=== PATIENT | female | born 1950 | race Caucasian/White ===

== ENCOUNTER → 2017-10-03 17:03 | Outpatient (CLI) | payer MEDICARE, SELFPAY ==
[2017-10-03 18:35] LABS: Thyroid Stimulating Hormone 1.81 uIU/mL (0.47-4.68)
== END ==
PROVIDERS: Visit Provider Internal Medicine
DX: E03.9 Hypothyroidism, unspecified (principal)
CPT/HCPCS: 36415; 84443

== ENCOUNTER → 2017-10-13 15:01 | Outpatient (CLI) | payer MEDICARE, SELFPAY ==
[2017-10-13 17:26] LABS: Add Manual Diff / Slide Review NO; Basophils Percent Auto 0.9 % (0-2); Eosinophils Percent Auto 0.8 % (2-4); Hematocrit 35.2 % (36-46); Hemoglobin 11.9 g/dL (12.0-16.0); Lymphocytes Percent Auto 31.2 % (25-40); Mean Corpuscular HGB Conc 33.8 % (30-36); Mean Corpuscular Hemoglobin 30.6 PG (26-34); Mean Corpuscular Volume 90.7 fL (80-100); Monocytes Percent Auto 12.4 % (3-14); Neutrophils Absolute Auto 2700 /uL (3000-5900); Neutrophils Percent Auto 54.7 % (50-75); Platelet Count 252 X10^3/uL (150-400); Red Blood Cell Count 3.88 X10^6/uL (4.0-5.2); Red Cell Distribution Width 15.2 % (11.6-14.8)
== END ==
PROVIDERS: Family Provider Family Medicine; PCP Family Medicine; Visit Provider Family Medicine
DX: D64.9 Anemia, unspecified (principal)
CPT/HCPCS: 36415; 85025

== ENCOUNTER → 2017-11-24 07:54 | Outpatient (CLI) | payer MEDICARE, SELFPAY ==
--- NOTE | 2017-11-24 07:55 | DI.MG.S_ITS ---
BILATERAL DIGITAL SCREENING MAMMOGRAM 3D/2D WITH CAD: 11/24/2017 CLINICAL: Routine screening. Comparison is made to exams dated: 05/19/2015 mammogram, 02/27/2013 mammogram, and 10/11/2010 mammogram - [facility]. There are scattered fibroglandular elements in both breasts. Current study was also evaluated with a Computer Aided Detection (CAD) system. No significant masses, calcifications, or other findings are seen in either breast. There has been no significant interval change. IMPRESSION: NEGATIVE There is no mammographic evidence of malignancy. A 1 year screening mammogram is recommended. This exam was interpreted at Station ID: [id number]. NOTE: For mammograms, a report in lay terms will be sent to the patient. Approximately 15% of breast malignancies will not be visualized mammographically. In the management of a palpable breast mass, a negative mammogram must not discourage biopsy of a clinically suspicious lesion. Electronically Signed By: Altaf bonds/holger:11/24/2017 09:48:49 letter sent: Normal Exam ACR BI-RADS Category 1: Negative [id number]
== END ==
PROVIDERS: Family Provider Family Medicine; PCP Family Medicine; Visit Provider Family Medicine
DX: Z12.31 Encounter for screening mammogram for malignant neoplasm of breast (principal)
CPT/HCPCS: 77063; 77067

== ENCOUNTER → 2017-12-01 09:06 | Outpatient (CLI) | payer MEDICARE, SELFPAY ==
[2017-12-01 09:23] LABS: Add Manual Diff / Slide Review NO; Eosinophils Percent Auto 0.9 % (2-4); Hematocrit 40.5 % (36-46); Hemoglobin 13.5 g/dL (12.0-16.0); Lymphocytes Percent Auto 30.4 % (25-40); Mean Corpuscular HGB Conc 33.3 % (30-36); Mean Corpuscular Hemoglobin 30.6 PG (26-34); Mean Corpuscular Volume 91.9 fL (80-100); Monocytes Percent Auto 13.4 % (3-14); Neutrophils Absolute Auto 2700 /uL (3000-5900); Neutrophils Percent Auto 54.3 % (50-75); Platelet Count 246 X10^3/uL (150-400); Red Cell Distribution Width 14.1 % (11.6-14.8)
[2017-12-01 10:27] LABS: HEMOLYSIS < 15 (0-50); Iron 63 ug/dL (37-170)
[2017-12-01 10:38] LABS: Percent Iron Saturation 14 % (15-50); Total Iron Binding Capacity 452 ug/dL (265-497); Transferrin 393 mg/dL (206-381)
[2017-12-01 11:03] LABS: Ferritin 10.7 ng/mL (11.1-264)
== END ==
PROVIDERS: Family Provider Family Medicine; PCP Family Medicine; Visit Provider Family Medicine
DX: D64.9 Anemia, unspecified (principal)
CPT/HCPCS: 36415; 82728; 83540; 83550; 85025

== ENCOUNTER 2018-11-18 10:28 | Emergency (ER) | payer OTHER, SELFPAY ==
[2018-11-18 10:29] VITALS: BP 125/80; PULSE 72; RESP 18; TEMP 36.4; O2SAT 99; BMI 21.2
[2018-11-18 10:30] VITALS: BP 145/80; PULSE 67; RESP 14; O2SAT 100
--- NOTE | 2018-11-18 10:32 | DI.RAD.S_ITS ---
PROCEDURE: XR CHEST 2V INDICATIONS: shortness of breath TECHNIQUE: 2 views of the chest were acquired. COMPARISON: [facility], , CHEST 1 VIEW, 10/19/2014, 7:27. FINDINGS: Surgical changes and devices: None. Lungs and pleura: Lungs are clear. No pleural effusions or pneumothorax. Mediastinum: Mediastinal contours are normal. Heart size is normal. Bones and chest wall: No suspicious bony abnormalities. Soft tissues appear unremarkable. IMPRESSION: Stable chest. No acute cardiopulmonary process is suspected. Dictated by: Fuad Dalton M.D. on 11/18/2018 at 10:15 Approved by: Fuad Dalton M.D. on 11/18/2018 at 10:16
--- NOTE | 2018-11-18 10:40 | ED.URI ---
HPI - URI/Sore Throat General Chief Complaint: Upper Respiratory Symptoms Stated Complaint: shortness of breath Time Seen by Provider: 11/18/18 10:39 Source: patient and old records reviewed Limitations: no limitations History of Present Illness HPI Narrative: Patient is a 68-year-old female presenting with increasing shortness of breath and cough. She was seen by her PCP on November 01 she was placed on prednisone and doxycycline. She says she did not get better after that she was seen again by her PCP on November 15 on a 2nd course of prednisone and antibiotics changed to Augmentin. She states this morning she felt her breathing was extremely labored. Her cough she says is a little bit better. She has been taking her albuterol inhaler 4 times a day feels like it helps some of the time. No fevers or chills. He has no chest pain. MD Complaint: cough Onset (ago): week(s) Duration: constant Severity: mild Relieving factors: nothing Related Data Home Medications Medication Instructions Recorded Confirmed cholecalciferol (vitamin D3) 1,000 iu PO QDAY #0 04/29/11 11/15/18 [Vitamin D3] Previous Rx's Medication Instructions Recorded albuterol sulfate 3 ml INH Q4HP PRN #30 vial 06/13/17 albuterol sulfate [Proventil HFA] 1 - 2 puff INH Q4HP PRN #6.7 gm 06/13/17 omeprazole 40 mg PO HS #30 cap 07/14/17 levothyroxine 75 mcg tablet 75 mcg PO DAILY #90 tab 09/10/18 mometasone-formoterol HFA 100 2 puff INHALATION BID #13 gram 09/14/18 mcg-5 mcg/actuation aerosol inhaler amoxicillin 875 mg-potassium 1 tab PO Q12H #28 tab 11/15/18 clavulanate 125 mg tablet prednisone 20 mg tablet See Rx Instructions .ROUTE 11/15/18 .COMPLEX #11 tab albuterol sulfate 1 puff INHALATION Q4-6H PRN #8 gram 11/18/18 Allergies Allergy/AdvReac Type Severity Reaction Status Date / Time erythromycin base Allergy Mild RASH Verified 11/15/18 11:29 shrimp Allergy Mild woke up w/ Verified 11/18/18 10:41 swollen eyes Review of Systems Review of Systems ROS Unobtainable: All systems reviewed & are unremarkable except as noted in HPI and below Constitutional Denies chills, Denies fever(s), Denies lethargy and Denies weakness ENT Ears, Nose, Mouth, and Throat: Denies change in voice, Denies neck pain and Denies sore throat Cardiovascular Denies rapid heart rate, Denies pedal edema, Denies edema, Reports dyspnea and Reports dyspnea on exertion Respiratory Reports as per HPI, Reports cough, Reports dyspnea, Reports dyspnea on exertion and Denies wheezing Gastrointestinal Gastrointestinal: Denies abdominal pain, Denies change in bowel habits, Denies diarrhea, Denies nausea and Denies vomiting Genitourinary Denies hematuria, Denies flank pain, Denies urinary incontinence and Denies urinary urgency Musculoskeletal Denies neck pain Integumentary/Breasts Denies pruritus, Denies erythema, Denies rash and Denies wounds Neurologic Denies weakness Allergic/Immunologic Denies wheezing [facility] Medical History Asthma (Chronic 2005) Eczema (Chronic 1952) Benign tumor of parotid gland (Resolved 1982) Chicken pox (Resolved ~1954) Measles (Resolved ~1954) Mumps (Resolved ~1954) Surgical History Anesthesia (Resolved) History of surgery (Resolved 1982) Status post breast biopsy (Resolved ~1992) Status post breast biopsy (Resolved ~1995) Family History Brother Age: 66 Diabetes mellitus Brother Age: 64 Diabetes mellitus Grandfather Mental health problem Grandmother Heart disease Mother Age: 86 Malignant neoplasm of lung, unspecified laterality, unspecified part of lung Brother Heart attack Liver disease Father Parkinson's disease Grandfather Pancreatic cancer Grandmother No problems noted. Social History marital status: number of children: 2 household members: none lives independently: Yes caregiver/support person: No housing: house education level: college occupational status: employed Smoking Status: Never smoker second hand exposure: No alcohol intake: current substance use type: does not use Family History Brother Age: 66 Diabetes mellitus Brother Age: 64 Diabetes mellitus Grandfather Mental health problem Grandmother Heart disease Mother Age: 86 Malignant neoplasm of lung, unspecified laterality, unspecified part of lung Brother Heart attack Liver disease Father Parkinson's disease Grandfather Pancreatic cancer Grandmother No problems noted. Social History marital status: number of children: 2 household members: none lives independently: Yes caregiver/support person: No housing: house education level: college occupational status: employed Smoking Status: Never smoker second hand exposure: No alcohol intake: current substance use type: does not use Exam Initial Vital Signs Initial Vital Signs: Vital Signs Temperature 97.6 F 11/18/18 10:29 Pulse Rate 72 11/18/18 10:29 Respiratory Rate 18 11/18/18 10:29 Blood Pressure 125/80 11/18/18 10:29 Pulse Oximetry 99 11/18/18 10:29 GENERAL: Well-appearing, well-nourished and in no acute distress. HEENT: Head atraumatic,EOMI, pupils reactive, face symmetric, moist mucous membranes CARDIOVASCULAR: Regular rate and rhythm without murmurs, rubs or gallops. RESPIRATORY: Breath sounds equal bilaterally, no wheezes rales or rhonchi. Speaks in full sentences without any difficulty. ABDOMEN: Soft, nontender. Normoactive bowel sounds all 4 quadrants. No guarding or rebound. EXTREMITIES: Normal range of motion, no clubbing or edema. Neurovascularly intact NEUROLOGICAL: Alert and oriented x4.Normal gait and speech. Cranial nerves II through XII grossly intact. SKIN: Warm, dry, no laceration, no petechiae, no rashes or lesions. Course Orders Ordered: ED Orders 11/18/18 10:32 XR chest 2V Stat EKG-12 Lead Stat Measure peak expiratory flow ONCE RT Consult Eval and Treat Now 11/18/18 10:36 B Type Natriuretic Peptide Stat Complete Blood Count AUTO DIFF Stat Comprehensive Metabolic Panel Stat Lactate (Lactic Acid) Stat Troponin & CK Cardiac Panel Stat 11/18/18 10:39 CT angio chest PE protocol Stat 11/18/18 11:15 Respiratory Panel (Film Array) Stat Discontinued Medications Albuterol/Ipratropium (Duoneb) 3 ml INH NOW ONE Stop: 11/18/18 10:40 Last Admin: 11/18/18 10:45 Dose: 3 ml Vital Signs - 8 hr 11/18/18 10:29 11/18/18 10:30 11/18/18 10:45 Temperature 97.6 F Pulse Rate 72 67 68 Respiratory Rate 18 14 12 Blood Pressure 125/80 Blood Pressure [Left Arm] 145/80 H Pulse Oximetry 99 100 100 11/18/18 11:30 11/18/18 12:30 Temperature Pulse Rate 62 64 Respiratory Rate 16 22 Blood Pressure Blood Pressure [Left Arm] 119/96 H 120/70 Pulse Oximetry 100 98 MDM - URI/Sore Throat Lab Data Attestation: I reviewed the patient's lab results. Result diagrams: 11/18/18 10:36 11/18/18 10:36 Lab Results 11/18/18 11/18/18 11/18/18 Range/Units 10:36 10:36 10:36 WBC 8.0 (4.5-11.0) X10^3/uL RBC 4.42 (4.0-5.2) X10^6/uL Hgb 13.7 (12.0-16.0) g/dL Hct 40.7 (36-46) % MCV 92.1 (80-100) fL MCH 31.0 (26-34) PG MCHC 33.7 (30-36) % RDW 13.9 (11.6-14.8) % Plt Count 267 (150-400) X10^3/uL Neut % (Auto) 84.9 H (50-75) % Lymph % (Auto) 11.3 L (25-40) % Wetzel % (Auto) 3.2 (3-14) % Eos % (Auto) 0.1 L (2-4) % Baso % (Auto) 0.5 (0-2) % Neut # (Auto) 6800 (6480-3076) /uL Lymph # (Auto) 900 L (4009-3305) /uL Wetzel # (Auto) 300 (0-900) /uL Eos # (Auto) 0 (0-450) /uL Baso # (Auto) 0 (0-100) /uL Sodium 140 (137-145) mmol/L Potassium 3.5 (3.4-5.1) mmol/L Chloride 103 (98-107) mmol/L Carbon Dioxide 26 (22-32) mmol/L BUN 13 (7-17) mg/dL Creatinine 0.80 (0.52-1.04) mg/dL Estimated GFR > 60.0 (>60) mL/min BUN/Creatinine Ratio 16.3 (6-22) Glucose 129 H (80-110) mg/dL Lactate 2.3 H (0.7-2.1) mmol/L Calcium 10.0 (8.4-10.2) mg/dL Total Bilirubin 0.9 (0.2-1.3) mg/dL AST 25 (14-36) IU/L ALT 25 (9-52) IU/L Alkaline Phosphatase 64 (38-126) U/L Total Creatine Kinase (30-135) U/L CK-MB (CK-2) (<2.37) ng/mL CK-MB (CK-2) Rel Index (1.5-5.0) % Troponin I (0.01-0.034) ng/mL B-Natriuretic Peptide (<100) Total Protein 7.3 (6.3-8.2) g/dL Albumin 4.6 (3.5-5.0) g/dL Globulin 2.7 (1.7-4.1) g/dL Albumin/Globulin Ratio 1.7 (1.0-2.8) Chlamy pneumoniae PCR (Not Detect) Adenovirus (PCR) (Not Detect) B.parapertussis DNA PCR (Not Detect) Coronavirus OC43 (PCR) (Not Detect) Coronavirus HKU1 (PCR) (Not Detect) Coronavirus 229E (PCR) (Not Detect) Coronavirus NL63 (PCR) (Not Detect) Human Metapneumovir PCR (Not Detect) Influenza Type A (PCR) (Not Detect) Influenza Type B (PCR) (Not Detect) M. pneumoniae (PCR) (Not Detect) Parainfluenza 1 (PCR) (Not Detect) Parainfluenza 2 (PCR) (Not Detect) Parainfluenza 3 (PCR) (Not Detect) Parainfluenza 4 (PCR) (Not Detect) RSV (PCR) (Not Detect) Entero/Rhino (PCR) (Not Detect) 11/18/18 11/18/18 11/18/18 Range/Units 10:36 10:36 11:15 WBC (4.5-11.0) X10^3/uL RBC (4.0-5.2) X10^6/uL Hgb (12.0-16.0) g/dL Hct (36-46) % MCV (80-100) fL MCH (26-34) PG MCHC (30-36) % RDW (11.6-14.8) % Plt Count (150-400) X10^3/uL Neut % (Auto) (50-75) % Lymph % (Auto) (25-40) % Wetzel % (Auto) (3-14) % Eos % (Auto) (2-4) % Baso % (Auto) (0-2) % Neut # (Auto) (7601-6055) /uL Lymph # (Auto) (5746-3228) /uL Wetzel # (Auto) (0-900) /uL Eos # (Auto) (0-450) /uL Baso # (Auto) (0-100) /uL Sodium (137-145) mmol/L Potassium (3.4-5.1) mmol/L Chloride (98-107) mmol/L Carbon Dioxide (22-32) mmol/L BUN (7-17) mg/dL Creatinine (0.52-1.04) mg/dL Estimated GFR (>60) mL/min BUN/Creatinine Ratio (6-22) Glucose (80-110) mg/dL Lactate (0.7-2.1) mmol/L Calcium (8.4-10.2) mg/dL Total Bilirubin (0.2-1.3) mg/dL AST (14-36) IU/L ALT (9-52) IU/L Alkaline Phosphatase (38-126) U/L Total Creatine Kinase 106 (30-135) U/L CK-MB (CK-2) 1.36 (<2.37) ng/mL CK-MB (CK-2) Rel Index 1.3 L (1.5-5.0) % Troponin I < 0.012 (0.01-0.034) ng/mL B-Natriuretic Peptide < 100 (<100) Total Protein (6.3-8.2) g/dL Albumin (3.5-5.0) g/dL Globulin (1.7-4.1) g/dL Albumin/Globulin Ratio (1.0-2.8) Chlamy pneumoniae PCR Not detected (Not Detect) Adenovirus (PCR) Not detected (Not Detect) B.parapertussis DNA PCR Not detected (Not Detect) Coronavirus OC43 (PCR) Not detected (Not Detect) Coronavirus HKU1 (PCR) Not detected (Not Detect) Coronavirus 229E (PCR) Not detected (Not Detect) Coronavirus NL63 (PCR) Not detected (Not Detect) Human Metapneumovir PCR Not detected (Not Detect) Influenza Type A (PCR) Not detected (Not Detect) Influenza Type B (PCR) Not detected (Not Detect) M. pneumoniae (PCR) Not detected (Not Detect) Parainfluenza 1 (PCR) Not detected (Not Detect) Parainfluenza 2 (PCR) Not detected (Not Detect) Parainfluenza 3 (PCR) Not detected (Not Detect) Parainfluenza 4 (PCR) Not detected (Not Detect) RSV (PCR) Not detected (Not Detect) Entero/Rhino (PCR) Not detected (Not Detect) Imaging Data Chest x-ray: Radiologist's impression: PROCEDURE: XR CHEST 2V INDICATIONS: shortness of breath TECHNIQUE: 2 views of the chest were acquired. COMPARISON: [facility], , CHEST 1 VIEW, 10/19/2014, 7:27. FINDINGS: Surgical changes and devices: None. Lungs and pleura: Lungs are clear. No pleural effusions or pneumothorax. Mediastinum: Mediastinal contours are normal. Heart size is normal. Bones and chest wall: No suspicious bony abnormalities. Soft tissues appear unremarkable. IMPRESSION: Stable chest. No acute cardiopulmonary process is suspected. Dictated by: Fuad Dalton M.D. on 11/18/2018 at 10:15 CT scan - chest: Radiologist's impression: PROCEDURE: CT ANGIO CHEST PE PROTOCOL INDICATIONS: hypoxia TECHNIQUE: After the administration of intravenous contrast, 2 mm thick sections acquired from the pulmonary apices to the posterior costophrenic angles. 3-dimensional maximum intensity projection (MIP) coronal and sagittal reformats were then acquired through the thorax. For radiation dose reduction, the following was used: automated exposure control, adjustment of mA and/or kV according to patient size. COMPARISON: [facility], CT, ABDOMEN/PELVIS WITH CONTRAST, 05/04/2012, 11:26. FINDINGS: Image quality: Diagnostic. Pulmonary arteries: Pulmonary arteries are normal in size, and demonstrate no intraluminal filling defects to suggest central pulmonary embolism. Lungs and pleura: Lungs are clear. No pleural effusions or pneumothorax. Central and peripheral airways are patent. There is a small area of groundglass attenuation within the right upper lobe (image 61, series 4). This Mediastinum: Heart size is normal, without pericardial effusion. No mediastinal or hilar adenopathy. Thoracic aorta is normal in caliber and enhancement. Esophagus is normal in caliber, without hiatal hernia. Bones and chest wall: No suspicious bony lesions. Ribs and thoracic spine appear intact throughout. Age-appropriate degenerative changes of the spine are present. Thyroid gland is not enlarged or adequately evaluated. No axillary or supraclavicular adenopathy. Abdomen: The included portions of the upper abdomen demonstrate heterogeneous areas of low attenuation involving the spleen. Otherwise, no focal abnormality is seen within the upper abdomen. IMPRESSION: 1. No evidence of pulmonary embolism. 2. No acute cardiopulmonary process is identified. 3. Small nodular area of groundglass attenuation within the right upper lobe is of doubtful significance. However, three-month followup CT of the chest is recommended to evaluate for interval change. 4. Heterogeneous enhancement of the spleen is likely related to early arterial phase imaging. Splenic lesions are felt to be less likely, but cannot be completely excluded. Dictated by: Fuad Dalton M.D. on 11/18/2018 at 11:04 ECG Data Attestation: I personally reviewed and interpreted this ECG as follows: Prior ECG tracings: available for review Interpretation: Normal sinus rhythm rate 66 p.r. interval [address] elevations or depressions artifact noted MDM Narrative Medical decision making narrative: Patient has signs and symptoms consistent with upper respiratory like infection. However with her increased labored breathing CT angio was obtained and is negative for PE and pneumonia. Respiratory panel also obtained and also negative. At this time patient overall is not septic. She can continue and finish her current antibiotic and prednisone regimen. Discharge Plan Departure Patient Disposition: Home Clinical Impression: Upper respiratory infection Qualifiers: URI type: unspecified viral URI Qualified Code(s): J06.9 - Acute upper respiratory infection, unspecified Discharge Date/Time: 11/18/18 13:01 Interventions: ED Discharge Assessment Last Done: 11/18/18 12:59 Instructions: DI for Acute Bronchitis Activity Restrictions/Additional Instructions: *You have been diagnosed with viral bronchitis *What to do: At this time no pneumonia seen on your x-ray. CT scan is negative for any blood clot. Respiratory panel for some viruses is also negative. It is likely that you have a different type of virus that we did not test for. *Continue to take medications as directed Finish her antibiotics and prednisone as previously prescribed Continue albuterol 1-2 puffs every 4 hours if needed for shortness of breath *Follow up with your primary care provider in 2-3 days *Return to ER if you should have no relief with albuterol, increasing shortness of breath or chest pain, or any new, worsening or concerning symptoms Prescriptions: New albuterol sulfate 90 mcg/actuation HFA aerosol inhaler 1 puff INHALATION Q4-6H PRN (Reason: shortness of breath or wheezing) Qty: 8 RF: 0 No Action amoxicillin-pot clavulanate 875-125 mg tablet 1 tab PO Q12H Qty: 28 RF: 0 prednisone 20 mg tablet See Rx Instructions .ROUTE .COMPLEX Qty: 11 RF: 0 cholecalciferol (vitamin D3) [Vitamin D3] 1,000 UNIT tablet 1,000 iu PO QDAY Qty: 0 RF: 0 albuterol sulfate 2.5 MG/3 ML solution for nebulization 3 ml INH Q4HP PRNQty: 30 RF: 6 albuterol sulfate [Proventil HFA] 90 MCG/PUFF HFA aerosol inhaler 1 - 2 puff INH Q4HP PRNQty: 6.7 RF: 5 omeprazole 40 MG capsule,delayed release(DR/EC) 40 mg PO HS Qty: 30 RF: 3 levothyroxine 75 mcg tablet 75 mcg PO DAILY Qty: 90 RF: 1 Dulera 100-5 mcg/actuation HFA aerosol inhaler 2 puff INHALATION BID Qty: 13 RF: 3 Referrals: Johana Callaway MD [Primary Care Provider] -
[2018-11-18 10:45] VITALS: PULSE 68; RESP 12; O2SAT 100
[2018-11-18 10:45] LABS: Add Manual Diff / Slide Review NO; Basophils Absolute Auto 0 /uL (0-100); Basophils Percent Auto 0.5 % (0-2); Eosinophils Absolute Auto 0 /uL (0-450); Eosinophils Percent Auto 0.1 % (2-4); Hematocrit 40.7 % (36-46); Hemoglobin 13.7 g/dL (12.0-16.0); Lymphocytes Absolute Auto 900 /uL (1100-4500); Lymphocytes Percent Auto 11.3 % (25-40); Mean Corpuscular HGB Conc 33.7 % (30-36); Mean Corpuscular Volume 92.1 fL (80-100); Monocytes Absolute Auto 300 /uL (0-900); Monocytes Percent Auto 3.2 % (3-14); Neutrophils Absolute Auto 6800 /uL (1500-7000); Neutrophils Percent Auto 84.9 % (50-75); Platelet Count 267 X10^3/uL (150-400); Red Blood Cell Count 4.42 X10^6/uL (4.0-5.2); Red Cell Distribution Width 13.9 % (11.6-14.8)
[2018-11-18] MEDS: ALBUTEROL/IPRATROPIUM 3 ML AMPUL INH (10:45)
[2018-11-18 10:59] LABS: Alanine Aminotransferase 25 IU/L (9-52); Albumin 4.6 g/dL (3.5-5.0); Albumin Globulin Ratio 1.7 (1.0-2.8); Alkaline Phosphatase 64 U/L (38-126); Aspartate Aminotransferase 25 IU/L (14-36); BUN Creatinine Ratio 16.3 (6-22); Bilirubin Total 0.9 mg/dL (0.2-1.3); Blood Urea Nitrogen 13 mg/dL (7-17); Carbon Dioxide 26 mmol/L (22-32); Chloride 103 mmol/L (98-107); Creatine Kinase 106 U/L (30-135); Estimated Glomerular Filt Rate > 60.0 mL/min (>60); Globulin 2.7 g/dL (1.7-4.1); Glucose 129 mg/dL (80-110); HEMOLYSIS < 15 (0-50); Lactate (Lactic Acid) 2.3 mmol/L (0.7-2.1); Potassium 3.5 mmol/L (3.4-5.1); Sodium 140 mmol/L (137-145); Total Protein 7.3 g/dL (6.3-8.2)
[2018-11-18 11:09] LABS: B Type Natriuretic Peptide < 100 (<100)
[2018-11-18 11:10] LABS: Troponin I < 0.012 ng/mL (0.01-0.034)
[2018-11-18 11:14] LABS: CKMB % Relative Index 1.3 % (1.5-5.0); Creatine Kinase MB 1.36 ng/mL (<2.37)
[2018-11-18 11:30] VITALS: BP 119/96; PULSE 62; RESP 16; O2SAT 100
[2018-11-18 12:30] VITALS: BP 120/70; PULSE 64; RESP 22; O2SAT 98
[2018-11-18 12:34] LABS: Adenovirus Not Detected (Not Detect); Bordetella pertussis Not Detected (Not Detect); Chlamydophila pneumoniae Not Detected (Not Detect); Coronavirus 229E Not Detected (Not Detect); Coronavirus HKU1 Not Detected (Not Detect); Coronavirus NL 63 Not Detected (Not Detect); Coronavirus OC43 Not Detected (Not Detect); Human Metapneumovirus Not Detected (Not Detect); Human Rhinovirus/Enterovirus Not Detected (Not Detect); Influenza A Not Detected (Not Detect); Influenza B Not Detected (Not Detect); Mycoplasma pneumoniae Not Detected (Not Detect); Parainfluenza Virus 1 Not Detected (Not Detect); Parainfluenza Virus 2 Not Detected (Not Detect); Parainfluenza Virus 3 Not Detected (Not Detect); Parainfluenza Virus 4 Not Detected (Not Detect); Respiratory Syncytial Virus Not Detected (Not Detect)
[2018-11-18 12:41] LABS: Reflexed Lactate in 2 Hours Y
== END 2018-11-18 13:01 | disposition home or self-care (01) ==
PROVIDERS: Emergency Provider Emergency Medicine; PCP Family Medicine
DX: J06.9 Acute upper respiratory infection, unspecified (principal); R06.02 Shortness of breath; R09.02 Hypoxemia
CPT/HCPCS: 36415; 36591; 71046; 71275; 80053; 82550; 82553; 83605; 83880; 84484; 85025; 87633; 93005; 94150; 94640; 99283; 99285; Q9967

== ENCOUNTER → 2019-02-07 08:54 | Outpatient (CLI) | payer OTHER, SELFPAY ==
--- NOTE | 2019-02-07 | DI.MG.S_ITS ---
BILATERAL DIGITAL SCREENING MAMMOGRAM 3D/2D WITH CAD: 02/07/2019 CLINICAL: Routine screening. Comparison is made to exams dated: 11/24/2017 mammogram, 05/19/2015 mammogram, and 02/27/2013 mammogram - [facility]. There are scattered fibroglandular elements in both breasts. Current study was also evaluated with a Computer Aided Detection (CAD) system. No significant masses, calcifications, or other findings are seen in either breast. There has been no significant interval change. IMPRESSION: NEGATIVE There is no mammographic evidence of malignancy. A 1 year screening mammogram is recommended. This exam was interpreted at Station ID: [id number]. NOTE: For mammograms, a report in lay terms will be sent to the patient. Approximately 15% of breast malignancies will not be visualized mammographically. In the management of a palpable breast mass, a negative mammogram must not discourage biopsy of a clinically suspicious lesion. Electronically Signed By: Jose Cruz jefferson/holger:02/07/2019 12:05:22 letter sent: Normal Exam ACR BI-RADS Category 1: Negative 3341F
== END ==
PROVIDERS: PCP Family Medicine; Visit Provider Family Medicine
DX: Z12.31 Encounter for screening mammogram for malignant neoplasm of breast (principal)
CPT/HCPCS: 77063; 77067

== ENCOUNTER → 2019-02-25 13:36 | Outpatient (CLI) | payer OTHER, SELFPAY | PROVIDERS: PCP Family Medicine; Visit Provider Family Medicine | DX: E03.9 Hypothyroidism, unspecified (principal) | CPT/HCPCS: 36415; 84443 ==

== ENCOUNTER → 2019-03-01 07:35 | Outpatient (CLI) | payer OTHER, SELFPAY ==
--- NOTE | 2019-03-01 07:52 | DI.CT.S_ITS ---
PROCEDURE: CT CHEST WO CON INDICATIONS: Abnormal findings on diagnostic imaging TECHNIQUE: Noncontrast 2.0-2.5 mm thick sections acquired from the pulmonary apices to the posterior costophrenic angles. 7 mm thick axial MIP, and 5 mm coronal and sagittal reformats were then acquired. A low radiation dose technique was utilized. COMPARISON: [facility], CT, CT ANGIO CHEST PE PROTOCOL, 11/18/2018, 11:33. FINDINGS: Image quality: Diagnostic, given the low radiation dose technique. Lungs and pleura: The area of subtle solid alveolar airspace disease at the middle third of the right lung has resolved. This indicates underlying inflammatory etiology rather than suspicion for neoplasm. No new lesion has developed. Mediastinum: Heart size is normal. No pericardial effusion. No mediastinal adenopathy by size criteria. Thoracic aorta and central pulmonary arteries are normal in size. Esophagus is normal in caliber. No hiatal hernia. Bones and chest wall: No suspicious bony lesions. No vertebral body compression fractures. No axillary or supraclavicular adenopathy by size criteria. Thyroid gland appears normal where well seen. Abdomen: Visualized upper abdomen solid organs and bowel loops appear normal in the absence of contrast. IMPRESSION: Resolution of a small focus subtle solid airspace disease right lung, no new lesion, no followup recommended. Area of prior CT concern appears to represent a small focus of inflammatory change rather than evidence of neoplastic. Dictated by: Sebastien Estrada M.D. on 03/01/2019 at 12:15 Approved by: Sebastien Estrada M.D. on 03/01/2019 at 12:19
== END ==
PROVIDERS: Family Provider Family Medicine; PCP Family Medicine; Visit Provider Family Medicine
DX: R93.89 Abnormal findings on diagnostic imaging of other specified body structures (principal)
CPT/HCPCS: 71250

== ENCOUNTER → 2019-04-08 11:00 | Outpatient (CLI) | payer OTHER, SELFPAY ==
[2019-04-08 12:40] LABS: Thyroid Stimulating Hormone 1.58 uIU/mL (0.47-4.68)
== END ==
PROVIDERS: PCP Family Medicine; Visit Provider Family Medicine
DX: E03.9 Hypothyroidism, unspecified (principal)
CPT/HCPCS: 36415; 84443

== ENCOUNTER 2019-05-03 06:42 | Day surgery (SDC) | payer OTHER, SELFPAY ==
[2019-05-03] VITALS (9 sets, daily range): BP systolic 84–128; BP diastolic 49–78; PULSE 50–60; RESP 14–17; TEMP 36.2–36.7; O2SAT 95–100; BMI 21.1
--- NOTE | 2019-05-03 | PATH_ITS ---
[facility] Accession Number: [id number] . 01 Material submitted: . PART A: duodenum - DUODENUM PERIAMPULLARY MUCOSA BIOPSY PART B: duodenum bulb - DUODENAL BULB BIOPSY PART C: gastrointestinal site - GASTRIC ANTRUM BIOPSY PART D: esophagus, E-G Junction - GE JUNCTION BIOPSY PART E: esophagus - MID ESOPHAGUS BIOPSY . 02 Diagnosis: A. Duodenum, Periampullary Mucosa, Biopsy: Duodenal mucosa with focal foveolar metaplasia, consistent with peptic duodenitis. Negative for active inflammation, features of sprue, dysplasia or malignancy. . B. Duodenal Bulb, Biopsy: Duodenal mucosa with foveolar metaplasia, consistent with peptic duodenitis. Negative for active inflammation, features of sprue, dysplasia or malignancy. . C. Gastric Antrum, Biopsy: Antral mucosa with no diagnostic abnormality. No evidence of Helicobacter organisms on H/E stain. Negative for intestinal metaplasia. Negative for dysplasia and malignancy. . D. Gastroesophageal Junction, Biopsy: Squamocolumnar junctional mucosa with mild chronic inflammation. Negative for specialized intestinal metaplasia, dysplasia or malignancy. . E. Mid Esophagus, Biopsy: Squamous epithelium with no diagnostic abnormality. Intraepithelial eosinophils are not increased. Negative for dysplasia and malignancy. [facility] 05/07/2019 1059 Local . 02 Electronically signed: . Davi Small MD, PhD, Pathologist NPI- [id number] . 01 Gross description: . Part A: DUODENUM PERIAMPULLARY MUCOSA BIOPSY: Received in formalin are 3 fragment(s) of frederick, soft tissue measuring 0.3 x 0.2 x 0.1 cm to 0.3 x 0.1 x 0.1 cm submitted entirely in 1 cassette(s) Part B: DUODENAL BULB BIOPSY: Received in formalin is 1 fragment(s) of frederick, soft tissue measuring 0.4 x 0.2 x 0.2 cm submitted entirely in 1 cassette(s) Part C: GASTRIC ANTRUM BIOPSY: Received in formalin is 1 fragment(s) of frederick, soft tissue measuring 0.3 x 0.2 x 0.1 cm submitted entirely in 1 cassette(s) Part D: GE JUNCTION BIOPSY: Received in formalin are 2 fragment(s) of frederick, soft tissue measuring 0.3 x 0.1 x 0.1 cm to 0.3 x 0.3 x 0.1 cm submitted entirely in 1 cassette(s) Part E: MID ESOPHAGUS BIOPSY: Received in formalin is 1 fragment(s) of frederick, soft tissue measuring 0.2 x 0.2 x 0.2 cm submitted entirely in 1 cassette(s) /QBJ 05/03/2019 2222 Local . 02 Pathologist provided ICD-10: K21.9, K29.80, R13.10 . 02 CPT . 147943, 088875, 389927, 794412, [id number] Performed at: 01 [facility] [address] [id number] MD Jose Cruz Alejandre MD Phone: [phone] Performed at: 02 [facility] [address] [place], [place] [id number] MD Beverly Samuel MD Phone: [phone]
[2019-05-03] MEDS: SODIUM CHLORIDE 0.9% 1,000 ML 100 ML IV ×2 (07:22→09:27)
--- NOTE | 2019-05-03 07:42 | PM.HP.1 ---
History of Present Illness History of Present Illness Date Patient Seen: 05/03/19 Time Patient Seen: 07:42 Chief complaint: [id number] Narrative: This is a 68 yo woman here for EGD. To review, she came to see me in February with history of daily heartburn, waterbrash, and asthma with a recent bronchitis. She also has chronic sinusitis, hypothyroidism, history of anemia and palpitations. She had an EGD in 2012 which was normal, without any findings of esophagitis, gastritis, or hiatal hernia mentioned in the report. She was put on omeprazole in 2017 by an ENT doctor she was seeing for her sinuses. She said it helped her heartburn when she took it daily, but now she only takes it from time to time. She uses Tums, and takes about 3 each night. She tries to keep to an anti reflux diet and behavioral modifications, but she finds it hard to avoid eating late at night. She feels a pressure in her chest and throat when she lies down, and she notices acid taste in her mouth as well as burning in her throat. Since her visit to see me in February she has not been taking her PPI, but has been keeping more strictly to anti reflux diet and behavioral modifications, and her symptoms have been minimal. ROS: She has occasional mild nausea, voice changes/hoarseness, wheezing, and anxiety. Thirteen system review is negative other than as mentioned below and in HPI. PE: GENERAL: Well groomed and cooperative. Appears stated age. Answers questions promptly and appropriately. Vital signs noted. HENT: Normocephalic, atraumatic. Hearing intact. Oral mucosa is pink and moist. EYES: Conjunctiva pink, sclera white, no periorbital swelling. CARDIOVASCULAR: Regular rate. No pedal edema. RESPIRATORY: Normal respiratory rate, breathing comfortably on room air. GASTROINTESTINAL: Abdomen soft and non-distended GENITALURINARY: No flank tenderness. MUSCULOSKELETAL: Equal tone and mass bilaterally. SKIN: Warm, dry, soft, appropriate color for ethnicity. No other lesions, rashes, or wounds. NEURO: Alert and Oriented X 3. No gross sensory deficits, or cognitive issues. PSYCH: Appropriate affect and mood. Patient History Medical History Anxiety (Acute) Asthma (Chronic 2005) Benign tumor of parotid gland (Resolved 1982) Chicken pox (Resolved ~1954) Eczema (Chronic 1952) GERD (gastroesophageal reflux disease) (Acute) Measles (Resolved ~1954) Mumps (Resolved ~1954) Surgical History Anesthesia (Resolved) History of surgery (Resolved 1982) Status post breast biopsy (Resolved ~1992) Status post breast biopsy (Resolved ~1995) Family & Social History Family History Brother Age: 67 Diabetes mellitus Brother Age: 65 Diabetes mellitus Grandfather Mental health problem Grandmother Heart disease Mother Age: 87 Malignant neoplasm of lung, unspecified laterality, unspecified part of lung Hypertension Brother Heart attack Liver disease Father Parkinson's disease Grandfather Pancreatic cancer Grandmother No problems noted. Social History: household members none lives independently Yes caregiver/support person No Tobacco & Substance use: Smoking Status Former smoker alcohol intake current alcohol intake frequency holiday/special occasion Substance Use Type marijuana Meds Home Medications and Allergies Home Medications Medication Instructions Recorded Confirmed Type cholecalciferol (vitamin D3) 1,000 iu PO QDAY #0 04/29/11 05/03/19 History [Vitamin D3] albuterol sulfate 1 puff INHALATION Q4-6H PRN #8 gram 11/18/18 05/03/19 Rx sertraline 25 mg tablet See Rx Instructions .ROUTE 02/08/19 05/03/19 Rx .COMPLEX #30 tablet mometasone-formoterol HFA 100 2 puff INHALATION BID #13 gram 02/11/19 05/03/19 Rx mcg-5 mcg/actuation aerosol inhaler levothyroxine 50 mcg tablet 50 mcg PO DAILY #90 tab 02/25/19 05/03/19 Rx Allergies Allergy/AdvReac Type Severity Reaction Status Date / Time erythromycin base Allergy Mild RASH Verified 04/09/19 08:27 shrimp Allergy Mild woke up w/ Verified 04/09/19 08:27 swollen eyes Exam Vital Signs (past 8 hours): - 05/03/19 07:22 Temperature 97.8 F Pulse Rate 60 Respiratory Rate 16 Blood Pressure 128/78 Pulse Oximetry 100 Oxygen Delivery Method Room Air Assessment & Plan Assessment and plan (1) GERD (gastroesophageal reflux disease): Current visit: No Status: Acute (2) Mild intermittent asthma without complication: Current visit: No Status: Chronic Assessment & Plan narrative: Risks and benefits of screening EGD and biopsy were discussed with the patient including risk of bleeding, perforation, need for additional procedures, risks of anesthesia. The patient desires to proceed with the EGD procedure. Time Spent With Patient Time with patient: 15-24 minutes Quality VTE Deep Vein Thrombosis/Pulmonary Embolism Present on Admission: No
--- NOTE | 2019-05-03 08:10 | PM.OP.ENDO ---
Operative Date/Time/Diagnoses Date of procedure: 05/03/19 Time of procedure: 08:10 Pre-op diagnosis: Acid reflux Post-op diagnosis: other (periampullary mucosal proliferation the duodenum) Procedure & Clinicians Study performed: EGD, biopsies of periampullary tissue, duodenal bulb, gastric antrum, GE junction, mid esophagus Same procedure as scheduled: Yes Indications: Acid reflux symptoms Surgeon: Salima Sifuentes Procedure Notes SCOAP/Timeout: Performed Procedure in detail: The patient was brought to the room and placed in left lateral decubitus position with all bony prominences padded. A time-out was performed and then the patient was given procedural sedation starting with 2 mg of Versed and [100] mcg of fentanyl. A total of 4 mg of Versed and 100 micro g of fentanyl were given for the entire procedure. Vitals were monitored throughout the procedure and remained stable. A bite block was placed to protect the patient's lips, teeth, and tongue. Once adequately sedated the procedure was begun. The gastroscope was passed through the bite block, and over the tongue and into the esophagus without incident. A tubular view of the esophagus was maintained as I progressed down the esophagus into the stomach. The stomach was very elongated and difficult to insufflate. Once I reached the pylorus I was able to pop through into the duodenal bulb, and then into the 2nd part of the duodenum. Around the ampulla there was some heaped up mucosa, which appeared abnormal. This was biopsied and sent for pathology. The duodenal bulb appeared to have some low-grade inflammation. This was biopsied. Some endoscopic gastritis was seen in the antrum of the stomach, and was biopsied. No other masses or polyps were seen. On retroflex the hiatus had a small gap in it consistent with a grade 2 hiatal hernia. On retracting into the esophagus I found a normal looking Z-line, with no significant extension of salmon mucosa up into the esophagus. I biopsied the GE junction, and the midesophagus. There was some low-grade erythema in the mid esophagus, but no inlet patches or salmon-colored mucosa. The scope was then withdrawn from the rectum the procedure was concluded. The patient tolerated the procedure well and was transferred to the PACU in stable condition. Sedation minutes: 20 Findings: gastritis, hiatal hernia (Hill grade 2) and other findings (Abnormal periampullary mucosa, biopsies pending) Specimen(s): other (Periampullary mucosa, duodenal bulb, gastric antrum, GE junction, mid esophagus) Complications: none Impression: Low-grade gastritis, suspicious periampullary mucosal proliferation, low-grade duodenitis Post-procedure Recommendations: Other recommendation (Follow-up in 2 weeks for discussion of biopsy results and next steps) Follow up: weeks (2) Disposition: PACU
[2019-05-03] MEDS: LIDOCAINE 4% SOLN 50 ML 20 ML TOP (08:15)
[2019-05-03] MEDS: fentaNYL 250 MCG/5 ML INJ IV (08:16)
[2019-05-03] MEDS: MIDAZOLAM 5 MG/5 ML VIAL IV (08:17)
[2019-05-03] MEDS: ONDANSETRON 4 MG/2 ML INJ IV (09:28)
== END 2019-05-03 10:02 | disposition home or self-care (01) ==
PROVIDERS: PCP Family Medicine; Referring Provider Surgery; Visit Provider Surgery
PROC: 0DJ08ZZ Inspection of Upper Intestinal Tract, Via Natural or Artificial Opening Endoscopic (ICD-10-PCS; CPT 43235; principal; 2019-05-03 07:45)
DX: K21.9 Gastro-esophageal reflux disease without esophagitis (principal); K29.50 Unspecified chronic gastritis without bleeding; K44.9 Diaphragmatic hernia without obstruction or gangrene
CPT/HCPCS: 43239; 99152; J2250; J2405; J3010

== ENCOUNTER → 2019-09-14 13:50 | Outpatient (CLI) | payer OTHER, SELFPAY ==
[2019-09-15 00:58] LABS: COVID19 Sendout Not Detected (Not Detect)
== END ==
PROVIDERS: PCP Family Medicine; Visit Provider Physician Assistant
DX: Z01.812 Encounter for preprocedural laboratory examination (principal)
CPT/HCPCS: 87635

== ENCOUNTER 2019-09-17 12:50 | Day surgery (SDC) | payer OTHER, SELFPAY ==
[2019-09-17] VITALS (7 sets, daily range): BP systolic 106–140; BP diastolic 63–78; PULSE 51–68; RESP 14–19; TEMP 36.7–37.2; O2SAT 98–100; BMI 18.6
--- NOTE | 2019-09-17 | PATH_ITS ---
[facility] Accession Number: [id number] . 01 Material submitted: . colon - SESSILE POLYP AT 90CM . 02 Diagnosis: Sessile Polyp at 90 cm, Biopsy: Portions of sessile serrated adenoma x3. MRV 09/19/2019 1028 Local . 02 Electronically signed: . Amanda Bright MD, Pathologist NPI- [id number] . 01 Gross description: . SESSILE POLYP AT 90CM: Received in formalin are 3 fragment(s) of frederick, soft tissue measuring 0.3 x 0.2 x 0.2 cm to 0.3 x 0.2 x 0.1 cm submitted entirely in 1 cassette(s) /QBJ 09/18/2019 0424 Local . 02 Pathologist provided ICD-10: K63.5, Z86.010, Z12.11 . 02 CPT . 081112 Performed at: 01 [facility] [address], [place], [place] [id number] MD Jose Cruz Alejandre MD Phone: [phone] Performed at: 02 [facility] [address] [place], [place] [id number] MD Beverly Samuel MD Phone: [phone]
--- NOTE | 2019-09-17 13:30 | PM.HP.1 ---
History of Present Illness History of Present Illness Date Patient Seen: 09/17/19 Time Patient Seen: 13:31 Chief complaint: [id number] Narrative: This is a 68 yo woman here for colonoscopy. She has a history of prior colonosocopy in 2013. She denies melena or hematochezia, but has had significant unexplained weight loss of over 20 lbs in the past year. She has been changing her diet due to symptomatic acid reflux, and has had great improvement. She is an avid cyclist which she has continued through her weight and dietary changes. ROS: GERD, constipation, anxiety, eczema. Thirteen system review is negative other than as mentioned below and in HPI. PE: GENERAL: Well groomed and cooperative. Appears stated age. Very thin. Answers questions promptly and appropriately. Vital signs noted. HENT: Normocephalic, atraumatic. Hearing intact. EYES: Conjunctiva pink, sclera white, no periorbital swelling. CARDIOVASCULAR: Regular rate. No pedal edema. RESPIRATORY: Normal respiratory rate, breathing comfortably on room air. GASTROINTESTINAL: Abdomen soft and non-distended GENITALURINARY: No flank tenderness. MUSCULOSKELETAL: Equal tone and mass bilaterally. SKIN: Warm, dry, soft, appropriate color for ethnicity. No other lesions, rashes, or wounds. NEURO: Alert and Oriented X 3. No gross sensory deficits, or cognitive issues. PSYCH: Appropriate affect and mood. Patient History Medical History Anxiety (Acute) Asthma (Chronic 2005) Benign tumor of parotid gland (Resolved 1982) Chicken pox (Resolved ~1954) Eczema (Chronic 1952) GERD (gastroesophageal reflux disease) (Acute) Measles (Resolved ~1954) Mumps (Resolved ~1954) Surgical History Anesthesia (Resolved) History of surgery (Resolved 1982) Status post breast biopsy (Resolved ~1992) Status post breast biopsy (Resolved ~1995) Family & Social History Family History Brother Age: 67 Diabetes mellitus Brother Age: 65 Diabetes mellitus Grandfather Mental health problem Grandmother Heart disease Mother Age: 87 Malignant neoplasm of lung, unspecified laterality, unspecified part of lung Hypertension Brother Heart attack Liver disease Father Parkinson's disease Grandfather Pancreatic cancer Grandmother No problems noted. Social History: household members none lives independently Yes caregiver/support person No Tobacco & Substance use: Smoking Status Former smoker alcohol intake current alcohol intake frequency holiday/special occasion Substance Use Type marijuana Meds Home Medications and Allergies Home Medications Medication Instructions Recorded Confirmed Type cholecalciferol (vitamin D3) 1,000 iu PO QDAY #0 04/29/11 09/17/19 History [Vitamin D3] albuterol sulfate 1 puff INHALATION Q4-6H PRN #8 gram 11/18/18 09/17/19 Rx levothyroxine 50 mcg tablet See Rx Instructions .ROUTE 05/06/19 09/17/19 Rx .COMPLEX #90 tablet famotidine 20 mg tablet 20 mg PO BID #60 tab 05/17/19 09/17/19 Rx albuterol sulfate See Rx Instructions .ROUTE 06/07/19 09/17/19 Rx .COMPLEX #90 milliliter sertraline 25 mg tablet 25 mg PO DAILY #30 tab 07/03/19 09/17/19 Rx mometasone-formoterol HFA 100 See Rx Instructions .ROUTE 07/22/19 09/17/19 Rx mcg-5 mcg/actuation aerosol inhaler .COMPLEX #13 gram Allergies Allergy/AdvReac Type Severity Reaction Status Date / Time erythromycin base Allergy Mild RASH Verified 05/16/19 14:51 shrimp Allergy Mild woke up w/ Verified 05/16/19 14:51 swollen eyes Exam Vital Signs (past 8 hours): - 09/17/19 13:22 Temperature 98.1 F Pulse Rate 68 Respiratory Rate 16 Blood Pressure 118/72 Pulse Oximetry 100 Oxygen Delivery Method Room Air Assessment & Plan Assessment and plan (1) GERD (gastroesophageal reflux disease): Status: Acute (2) Constipation: Status: Acute Assessment & Plan narrative: Risks and benefits of screening colonoscopy and possible polypectomy were discussed with the patient including risk of bleeding, perforation, need for additional procedures, risks of anesthesia. The patient desires to proceed with the colonoscopy procedure. COVID-19 COVID-19 status: Negative Result date/Date tested (Pos, Neg/Pending): 09/14/19 Time Spent With Patient Time with patient: 15-24 minutes Quality VTE Deep Vein Thrombosis/Pulmonary Embolism Present on Admission: No
[2019-09-17] MEDS: SODIUM CHLORIDE 0.9% 1,000 ML 200 ML IV (13:41)
--- NOTE | 2019-09-17 14:43 | PM.OP.ENDO ---
Operative Date/Time/Diagnoses Date of procedure: 09/17/19 Time of procedure: 14:44 Pre-op diagnosis: Personal history of colon polyps Post-op diagnosis: other (Sessile appearing colon polyp in the cecum, very tortuous colon) Procedure & Clinicians Study performed: Colonoscopy, cold forceps biopsy of mucosal abnormality at 90 cm in the cecum Same procedure as scheduled: Yes Indications: This is a 68-year-old woman here for surveillance colonoscopy Surgeon: Salima Sifuentes Procedure Notes SCOAP/Timeout: Perform Procedure in detail: The patient was brought to the room and placed in left lateral decubitus position with all bony prominences padded. A time-out was performed and then the patient was given procedural sedation starting with [4] mg of Versed and [100] mcg of fentanyl. A total of 5 mg of Versed and 150 micro g of fentanyl were given for the entire procedure. Vitals were monitored throughout the procedure and remained stable. Once adequately sedated, the procedure was begun. A rectal exam was performed revealing [no abnormalities]. The colonoscope was then introduced to the rectum and advanced to the cecum in the usual fashion. The colon was very tortuous, and floppy making passage of the colonoscope difficult. []The cecum was identified by the appendiceal orifice, the mucosal tri-fold, and the ileocecal valve. There was a small area of heaped up, hypercellular mucosa in the cecum at 90 cm sitting prominently on a mucosal fold. This appeared to me to be either scar tissue from a prior polypectomy, or a sessile polyp. I took multiple cold forceps biopsies of the abnormal appearing tissue. The scope was then retracted while rotating side to side and examining each mucosal fold. [] At the conclusion of the procedure retroflexion was performed and [small grade 1-2 internal hemorrhoids without stigmata of bleeding were seen]. The scope was then withdrawn from the rectum the procedure was concluded. The patient tolerated the procedure well and was transferred to the PACU in stable condition. Scope withdrawal time: 11 Findings: other findings (Polyp verses scar tissue from prior polypectomy at 90 cm in the cecum) Specimen(s): other (Biopsies of possible polyp 90 cm in the cecum) Complications: none Impression: The patient had a very tortuous colon, and had an area of heaped up mucosa in the cecum which is consistent with either prior polypectomy site, or a new polyp. This was biopsied with cold forceps. Post-procedure Recommendations: Other recommendation (Follow-up colonoscopy recommendations will depend on biopsy results.) Follow up: as needed Disposition: PACU
[2019-09-17] MEDS: MIDAZOLAM 5 MG/5 ML VIAL IV (15:18)
[2019-09-17] MEDS: fentaNYL 250 MCG/5 ML INJ IV (15:18)
== END 2019-09-17 16:24 | disposition home or self-care (01) ==
PROVIDERS: PCP Family Medicine; Referring Provider Surgery; Visit Provider Surgery
PROC: 0DJD8ZZ Inspection of Lower Intestinal Tract, Via Natural or Artificial Opening Endoscopic (ICD-10-PCS; CPT 45378; principal; 2019-09-17 13:45)
DX: Z12.11 Encounter for screening for malignant neoplasm of colon (principal); Z86.010 Personal history of colon polyps; F41.9 Anxiety disorder, unspecified; K21.9 Gastro-esophageal reflux disease without esophagitis; K64.0 First degree hemorrhoids; D12.6 Benign neoplasm of colon, unspecified
CPT/HCPCS: 45380; J2250; J3010

== ENCOUNTER → 2019-10-08 11:26 | Outpatient (CLI) | payer OTHER, SELFPAY ==
--- NOTE | 2019-10-08 12:07 | DIET.PN ---
Dietary Progress Note Assessment: 68y F c severe GERD sx, May 2019 had EGD, had 7 biopsies, started [employer] Watchers diet after inquiring this RD for help c sx, with almost 100% sx resolving, and 2w ago stopped taking GERD meds because no sx, does not feel diet is restrictive in fact the opposite. Goal is +10# Planned November 12 colon resection c Von, needs to be in positive nitrogen balance. Pt reports having difficult past year, got sick for 1mo c bronchitis, had bad sx related to GERD. Pt has been following Acid Watchers diet for 4mo which has liberalized her diet and drastically reduced sx but cannot seem to gain weight to her normal 140#. Usual Day: B: soft boiled egg, spinach, 1tsp evoo L: high fiber salad c salmon D: chicken tenders c coating of hemp hearts, sauteed bok augusto c 1 tsp evoo Pt has very high fiber, clean-eating diet and high activity level which were likely contributing to weight loss. HT: 5'7 WT: 126.2 UBW: 140# 1y ago BMI: 19.7 (low for age) PA: rides bike daily- 10-20 miles, swims [employer], [employer], [employer], general active person Nutrition Dx: unintentional weight loss r/t severe GERD sx limiting food intake and food choices aeb 10% unintended weight loss in <1y, pt BMI 19.2 (low for age), pt reports feeling too thin c losses to LBM, pt had very limited diet before starting Acid Watchers Diet. Interventions: 1. To encourage healthy weight gain, encouraged pt to cut vegetable intake by 25% and replace it c larger portion of protein and healthy fat. Used food models to idea generate c pt different meal scenerios. Using appropriate Acid Watchers Diet foods suggested increasing PRO and healthy fats such as: hempmilk instead of almond milk, almond butter, shredded unsweetened coconut, evoo, avocado, avocado oil, full fat yogurt, eggs, nuts, seeds, maria r seeds. Monitoring/Evaluations: f/u on 11/07/2019 to go over ERAS for upcoming abd surgery and assess weight and problem solve any barriers.
== END ==
PROVIDERS: PCP Family Medicine; Referring Provider Family Medicine; Visit Provider Family Medicine
DX: K21.9 Gastro-esophageal reflux disease without esophagitis (principal); R63.4 Abnormal weight loss; Z68.1 Body mass index [BMI] 19.9 or less, adult; Z71.3 Dietary counseling and surveillance
CPT/HCPCS: 97802

== ENCOUNTER 2019-11-24 08:38 | Emergency (ER) | payer OTHER, SELFPAY ==
[2019-11-24 08:45] VITALS: BP 159/77; PULSE 57; O2SAT 100
[2019-11-24 08:49] VITALS: BP 159/77; PULSE 62; RESP 16; TEMP 36.6; O2SAT 97; BMI 20.1
--- NOTE | 2019-11-24 08:52 | DI.RAD.S_ITS ---
PROCEDURE: XR CHEST 1V INDICATIONS: chest pain, palpation TECHNIQUE: One view of the chest was acquired. COMPARISON: [facility], CT, CT CHEST WO CON, 03/01/2019, 7:47. [facility], CR, CHEST 1 VIEW, 10/19/2014, 7:27. [facility], CR, XR CHEST 2V, 11/18/2018, 10:44. FINDINGS: Surgical changes and devices: None. Lungs and pleura: Lungs are clear. No pleural effusions or pneumothorax. Mediastinum: The cardiac contours are at the upper limits of normal. The aorta demonstrates calcification and tortuosity. Bones and chest wall: No suspicious bony lesions. Age-appropriate bony degenerative changes are seen. Overlying soft tissues appear unremarkable. IMPRESSION: Unremarkable portable chest for age. Dictated by: George Euceda M.D. on 11/24/2019 at 8:12 Approved by: George Euceda M.D. on 11/24/2019 at 8:13
--- NOTE | 2019-11-24 08:53 | ED.ARRPALP ---
HPI - Arrhythmia/Palpitations General Chief Complaint: Arrhythmia/Palpitations Stated Complaint: Arrhythmia Time Seen by Provider: 11/24/19 08:45 History of Present Illness HPI narrative: 69-year-old woman with a history of hypothyroid ism with last TSH normal at 1.5 in March presents with 3 hours of SVT and aching into biceps bilaterally. She has a history of SVT with spontaneous conversion with simple Valsalva maneuvers in the past. It has never lasted this long nor has she had any additional symptoms from it. She was backpacking last week and doing well. The palpitations woke her from sleep at approximately 5:00 a.m. and spontaneously converted at approximately 8:00 a.m. and she is in sinus rhythm on presentation to the emergency department. She describes no chest pain, dyspnea, fevers, cough, wheeze, abdominal pain, vomiting, diarrhea, rashes or headache The heaviness down into the biceps resolved with conversion of her arrhythmia. Related Data Home Medications Medication Instructions Recorded Confirmed cholecalciferol (vitamin D3) 1,000 iu PO QDAY #0 04/29/11 11/07/19 [Vitamin D3] Previous Rx's Medication Instructions Recorded albuterol sulfate 1 puff INHALATION Q4-6H PRN #8 gram 11/18/18 levothyroxine 50 mcg tablet See Rx Instructions .ROUTE 05/06/19 .COMPLEX #90 tablet albuterol sulfate See Rx Instructions .ROUTE 06/07/19 .COMPLEX #90 milliliter mometasone-formoterol HFA 100 See Rx Instructions .ROUTE 10/04/19 mcg-5 mcg/actuation aerosol inhaler .COMPLEX #13 gram Allergies Allergy/AdvReac Type Severity Reaction Status Date / Time erythromycin base Allergy Mild RASH Verified 11/07/19 09:12 lanolin Allergy Mild Redness of Verified 11/07/19 09:12 Skin latex Allergy Mild Rash Verified 11/07/19 09:12 shrimp Allergy Mild woke up w/ Verified 11/07/19 09:12 swollen eyes Review of Systems Review of Systems Narrative: Remainder of review of systems including constitutional, ENT, cardiovascular, respiratory, GI, , musculoskeletal, skin, neurologic and psychiatric systems reviewed and are unremarkable except as noted in HPI. Patient History Medical History Adenoma of cecum (Acute) Anxiety (Acute) Asthma (Chronic 2005) Benign tumor of parotid gland (Resolved 1982) Bradycardia (Acute) Chicken pox (Resolved ~1954) Eczema (Chronic 1952) GERD (gastroesophageal reflux disease) (Acute) Kidney stone (Acute) Measles (Resolved ~1954) Mumps (Resolved ~1954) Surgical History Anesthesia (Resolved) History of surgery (Resolved 1982) Status post breast biopsy (Resolved ~1992) Status post breast biopsy (Resolved ~1995) Family History Brother Age: 67 Diabetes mellitus Brother Age: 65 Diabetes mellitus Grandfather Mental health problem Grandmother Heart disease Mother Age: 87 Malignant neoplasm of lung, unspecified laterality, unspecified part of lung Hypertension Brother Heart attack Liver disease Father Parkinson's disease Grandfather Pancreatic cancer Grandmother No problems noted. Social History marital status: number of children: 2 household members: none lives independently: Yes caregiver/support person: No housing: house education level: college occupational status: employed Smoking Status: Former smoker second hand exposure: No alcohol intake: current substance use type: does not use Smoking Status: Former smoker alcohol intake frequency: a few times a week Substance Use Type: does not use Exam Narrative Exam Narrative: General: Healthy appearing, in no acute distress. Able to give a complete and coherent history. Well-nourished well-developed HEENT: Moist mucous membranes, normal sclera with reactive pupils, Neck: No JVD, supple Respiratory: Lungs are clear to auscultation, no wheezing no rales no rhonchi. Full and symmetrical air movement Cardiac: Regular rate and rhythm no murmurs no bruits Abdomen: Soft nontender good bowel tones, no flank pain Skin: Warm and dry, no rashes Neurologic: Grossly neurologically intact with no obvious asymmetries or abnormalities Extremities: No trauma, well perfused Psych: Cooperative, appropriate insight and affect Initial Vital Signs Initial Vital Signs: Vital Signs Pulse Rate 57 L 11/24/19 08:45 Blood Pressure 159/77 H 11/24/19 08:45 Pulse Oximetry 100 11/24/19 08:45 Course Orders Ordered: ED Orders 11/24/19 08:52 XR chest 1V Stat 11/24/19 08:55 Complete Blood Count AUTO DIFF Stat Comprehensive Metabolic Panel Stat Troponin I Stat Vital Signs Vital signs: Vital Signs - 8 hr 11/24/19 09:59 Pulse Rate 56 L Respiratory Rate 14 Blood Pressure 140/79 Pulse Oximetry 100 MDM - Arrhythmia/Palpitations Medical Records Attestation: I reviewed the patient's medical records. Lab Data Attestation: I reviewed the patient's lab results. Result diagrams: 11/24/19 08:55 11/24/19 08:55 Labs: Lab Results 11/24/19 11/24/19 Range/Units 08:55 08:55 WBC 4.9 (4.5-11.0) X10^3/uL RBC 4.61 (4.0-5.2) X10^6/uL Hgb 14.3 (12.0-16.0) g/dL Hct 42.8 (36-46) % MCV 92.9 (80-100) fL MCH 31.1 (26-34) PG MCHC 33.4 (30-36) % RDW 13.6 (11.6-14.8) % Plt Count 217 (150-400) X10^3/uL Neut % (Auto) 58.8 (50-75) % Lymph % (Auto) 27.0 (25-40) % [place] % (Auto) 12.4 (3-14) % Eos % (Auto) 1.1 L (2-4) % Baso % (Auto) 0.7 (0-2) % Neut # (Auto) 2900 (7766-8062) /uL Lymph # (Auto) 1300 (5733-5780) /uL [place] # (Auto) 600 (0-900) /uL Eos # (Auto) 100 (0-450) /uL Baso # (Auto) 0 (0-100) /uL Sodium 140 (137-145) mmol/L Potassium 3.8 (3.4-5.1) mmol/L Chloride 105 (98-107) mmol/L Carbon Dioxide 31 (22-32) mmol/L BUN 12 (7-17) mg/dL Creatinine 0.76 (0.52-1.04) mg/dL Estimated GFR > 60.0 (>60) mL/min BUN/Creatinine Ratio 15.8 (6-22) Glucose 102 (80-110) mg/dL Calcium 9.6 (8.4-10.2) mg/dL Total Bilirubin 0.9 (0.2-1.3) mg/dL AST 35 (14-36) IU/L ALT 32 (<35) IU/L Alkaline Phosphatase 74 (38-126) U/L Troponin I < 0.012 (0.01-0.034) ng/mL Total Protein 7.4 (6.3-8.2) g/dL Albumin 4.7 (3.5-5.0) g/dL Globulin 2.7 (1.7-4.1) g/dL Albumin/Globulin Ratio 1.7 (1.0-2.8) Imaging Data Chest x-ray: Radiologist's Impresson: FINDINGS: Surgical changes and devices: None. Lungs and pleura: Lungs are clear. No pleural effusions or pneumothorax. Mediastinum: The cardiac contours are at the upper limits of normal. The aorta demonstrates calcification and tortuosity. Bones and chest wall: No suspicious bony lesions. Age-appropriate bony degenerative changes are seen. Overlying soft tissues appear unremarkable. IMPRESSION: Unremarkable portable chest for age. Dictated by: George Euceda M.D. on 11/24/2019 at 8:12 ECG Data Interpretation: Sinus bradycardia at a rate of53 Left anterior fascicular block, with leftward axis No acute ischemic changes MDM Narrative Medical decision making narrative: 69-year-old woman presents with presumed SVT lasting for 3 hours resolved spontaneously prior to presentation in the emergency department. Workup today is entirely unremarkable for underlying etiology or acute coronary syndrome. Patient is safe for home discharge and will follow-up with her primary care physician Discharge Plan Departure Patient Disposition: Home Clinical Impression: Paroxysmal supraventricular tachycardia Discharge Date/Time: 11/24/19 10:00 Instructions: DI for Paroxysmal Supraventricular Tachycardia Activity Restrictions/Additional Instructions: Thank you for coming in today. Despite the 3 hours of SVT that you experience today, your heart looks like it is doing well at this point. There is no evidence of heart damage or heart attack like syndrome. Your lungs look nice and normal and there is no evidence of congestive heart failure. We talked about a using the Valsalva maneuver and adding the trick of rapidly raising both her legs to help with conversion if you experience the rhythm again. It was very appropriate to come into the emergency department with the symptoms you are having and the period of time that you are experiencing the SVT Prescriptions: No Action cholecalciferol (vitamin D3) [Vitamin D3] 1,000 UNIT tablet 1,000 iu PO QDAY Qty: 0 RF: 0 levothyroxine 50 mcg tablet See Rx Instructions .ROUTE .COMPLEX Qty: 90 RF: 4 albuterol sulfate 2.5 mg /3 mL (0.083 %) solution for nebulization See Rx Instructions .ROUTE .COMPLEX Qty: 90 RF: 5 Dulera 100-5 mcg/actuation HFA aerosol inhaler See Rx Instructions .ROUTE .COMPLEX Qty: 13 RF: 2 albuterol sulfate 90 mcg/actuation HFA aerosol inhaler 1 puff INHALATION Q4-6H PRN (Reason: shortness of breath or wheezing) Qty: 8 RF: 0 Referrals: Johana Callaway MD [Primary Care Provider] -
[2019-11-24 09:00] VITALS: PULSE 71; RESP 19; O2SAT 100
[2019-11-24 09:02] LABS: Add Manual Diff / Slide Review NO; Basophils Absolute Auto 0 /uL (0-100); Basophils Percent Auto 0.7 % (0-2); Eosinophils Absolute Auto 100 /uL (0-450); Eosinophils Percent Auto 1.1 % (2-4); Hematocrit 42.8 % (36-46); Hemoglobin 14.3 g/dL (12.0-16.0); Lymphocytes Absolute Auto 1300 /uL (1100-4500); Mean Corpuscular HGB Conc 33.4 % (30-36); Mean Corpuscular Hemoglobin 31.1 PG (26-34); Mean Corpuscular Volume 92.9 fL (80-100); Monocytes Absolute Auto 600 /uL (0-900); Monocytes Percent Auto 12.4 % (3-14); Neutrophils Absolute Auto 2900 /uL (1500-7000); Neutrophils Percent Auto 58.8 % (50-75); Platelet Count 217 X10^3/uL (150-400); Red Blood Cell Count 4.61 X10^6/uL (4.0-5.2); Red Cell Distribution Width 13.6 % (11.6-14.8); White Blood Cell Count 4.9 X10^3/uL (4.5-11.0)
--- NOTE | 2019-11-24 09:05 | PC.NURSE ---
patient reports history of arrhythmia, states she doesn't know which one. This morning at 5am she awoke feeling palpatations and felt her pulse she report a rate of around 80 or 90 and irregular. Additionally she stated she had 5/10 chest tightnes. She attempted valsalva manuver several times which did not resolve symptoms. She states in the past she has had success with valsalva manuver. Patient reports symptoms lasted about three hours and resolved pror to her arriving at the [facility]. [facility] sent to ER for evaluation. Patient currently symptom free.
[2019-11-24 09:12] LABS: Alanine Aminotransferase 32 IU/L (<35); Albumin 4.7 g/dL (3.5-5.0); Albumin Globulin Ratio 1.7 (1.0-2.8); Alkaline Phosphatase 74 U/L (38-126); Aspartate Aminotransferase 35 IU/L (14-36); BUN Creatinine Ratio 15.8 (6-22); Bilirubin Total 0.9 mg/dL (0.2-1.3); Blood Urea Nitrogen 12 mg/dL (7-17); Calcium 9.6 mg/dL (8.4-10.2); Carbon Dioxide 31 mmol/L (22-32); Chloride 105 mmol/L (98-107); Estimated Glomerular Filt Rate > 60.0 mL/min (>60); Globulin 2.7 g/dL (1.7-4.1); Glucose 102 mg/dL (80-110); HEMOLYSIS < 15 (0-50); Potassium 3.8 mmol/L (3.4-5.1); Sodium 140 mmol/L (137-145); Total Protein 7.4 g/dL (6.3-8.2)
[2019-11-24 09:23] LABS: Troponin I < 0.012 ng/mL (0.01-0.034)
[2019-11-24 09:59] VITALS: BP 140/79; PULSE 56; RESP 14; O2SAT 100
== END 2019-11-24 10:00 | disposition home or self-care (01) ==
PROVIDERS: Emergency Provider Emergency Medicine; PCP Family Medicine
DX: I47.1 Supraventricular tachycardia (principal); R07.9 Chest pain, unspecified
CPT/HCPCS: 36415; 71045; 80053; 84484; 85025; 93005; 99284

== ENCOUNTER → 2019-12-15 13:27 | Outpatient (CLI) | payer OTHER, SELFPAY ==
[2019-12-16 14:42] LABS: COVID19 Sendout Not Detected (Not Detect)
== END ==
PROVIDERS: PCP Family Medicine; Visit Provider Physician Assistant
DX: Z11.59 Encounter for screening for other viral diseases (principal)
CPT/HCPCS: 87635

== ENCOUNTER → 2019-12-29 13:49 | Outpatient (CLI) | payer OTHER, SELFPAY ==
[2019-12-30 22:30] LABS: COVID19 Sendout Not Detected (Not Detect)
== END ==
PROVIDERS: PCP Family Medicine; Visit Provider Physician Assistant
DX: Z11.59 Encounter for screening for other viral diseases (principal)
CPT/HCPCS: 87635

== ENCOUNTER 2020-01-01 11:26 | Day surgery (SDC) | payer OTHER, SELFPAY ==
[2020-01-01] VITALS (7 sets, daily range): BP systolic 105–142; BP diastolic 64–82; PULSE 40–57; RESP 8–16; TEMP 36.4–36.8; O2SAT 99–100; BMI 20.3
--- NOTE | 2020-01-01 | PATH_ITS ---
[facility] Accession Number: [id number] . 01 Material submitted: . PART A: cecum - CECAL POLYP PART B: colon - HEPATIC POLYP . 02 Diagnosis: A. Cecum, Polyp, Biopsy: Sessile serrated adenoma. . B. Hepatic Polyp, Biopsy: Colonic mucosa with a few small benign lymphoid aggregates and no other diagnostic abnormality. Additional levels were examined. Negative for dysplasia and malignancy. MRV 01/06/2020 1405 Local . 02 Electronically signed: . Beverly Samuel MD, Pathologist NPI- [id number] . 01 Gross description: . A. Received in formalin, labeled cecal polyp, and consists of a 1.0 x 0.9 x 0.4 cm frederick polyp. The margin is inked blue. The specimen is bisected and entirely submitted in cassette A1. B. Received in formalin, labeled hepatic polyp, and consists of a 0.6 x 0.4 x 0.2 cm frederick-pink polyp. The margin is inked blue. The specimen is bisected and entirely submitted in cassette B1. ([id number]) /MRV 01/02/2020 1511 Local . 02 Pathologist provided ICD-10: D12.0 . 02 CPT . 718990, [id number] Performed at: 01 [facility] [address], [place], [place] [id number] MD Jose Cruz Alejandre MD Phone: [phone] Performed at: 02 [facility] [address] [place], [place] [id number] MD Beverly Samuel MD Phone: [phone]
[2020-01-01] MEDS: SODIUM CHLORIDE 0.9% 1,000 ML 84 ML IV (12:12)
[2020-01-01] MEDS: fentaNYL 250 MCG/5 ML INJ IV (12:49)
[2020-01-01] MEDS: MIDAZOLAM 5 MG/5 ML VIAL IV (12:49)
--- NOTE | 2020-01-01 13:27 | PM.PREOP ---
Pre-operative Note COVID-19 COVID-19 status: Negative Interval Note History & Physical reviewed/Exam performed by Physician: Yes Changes to H&P: No ASA Class (for procedural sedation): II
--- NOTE | 2020-01-01 13:28 | P.OP.ENDO_ITS ---
Operative Date/Time/Diagnoses Date of procedure: 01/01/20 Pre-op diagnosis: See indication and findings Procedure & Clinicians Study performed: Colonoscopy Same procedure as scheduled: Yes Indications: Flat sessile serrated adenoma in the cecum, need for removal Surgeon: Ham Moore Procedure Notes Procedure in detail: After informed consent was obtained the patient was placed in left lateral decubitus position. Video colonoscope was introduced the rectum slowly advanced cecum. Preparation was excellent. The colon was fairly tortuous. On slow withdrawal mucosa was carefully examined. The scope was removed. The patient tolerated procedure well. Blood loss none Complications none Sedation Total sedation time 35 minutes Versed 8 mg fentanyl 100 mg IV titration Findings 1. 2 cm flat polyp with a mucus cap just under the lip of the cecum. This was injected with 2 cc of normal saline to raise and then he was hot snared and removed with Endo cut current. Removal appeared complete. Polyp was retrieved. 2. 2 cm flat polyp with a mucus cap seen near the hepatic flexure. This was removed with hot snare. Polyp was retrieved and removal appeared complete. Otherwise negative colonoscopy to cecum Will be in touch with Jamila about her pathology results. She will need follow- up colonoscopy within the year to ensure complete removal.
--- NOTE | 2020-01-01 13:52 | SUR.PHASEI ---
Aroused easily to voice, HOB elevated, Juice was given. Glasses placed on her face. returned to sleep after drinking juice. Resp unlabored, oriented/very drowsy when aroused.
== END 2020-01-01 14:25 | disposition home or self-care (01) ==
PROVIDERS: PCP Family Medicine; Referring Provider Internal Medicine Gastroenterology; Visit Provider Internal Medicine Gastroenterology
PROC: 0DJD8ZZ Inspection of Lower Intestinal Tract, Via Natural or Artificial Opening Endoscopic (ICD-10-PCS; CPT 45378; principal; 2020-01-01 13:00)
DX: D12.0 Benign neoplasm of cecum (principal); K21.9 Gastro-esophageal reflux disease without esophagitis; J45.909 Unspecified asthma, uncomplicated; E03.9 Hypothyroidism, unspecified
CPT/HCPCS: 45381; 45385; J2250; J3010

== ENCOUNTER → 2020-02-11 09:46 | Outpatient (CLI) | payer OTHER, SELFPAY ==
--- NOTE | 2020-02-11 | DI.MG.S_ITS ---
BILATERAL DIGITAL SCREENING MAMMOGRAM 3D/2D WITH CAD: 02/11/2020 CLINICAL: Routine screening. Comparison is made to exams dated: 02/07/2019 mammogram, 11/24/2017 mammogram, 05/19/2015 mammogram, and 02/27/2013 mammogram - [facility]. There are scattered fibroglandular elements in both breasts. Current study was also evaluated with a Computer Aided Detection (CAD) system. No significant masses, calcifications, or other findings are seen in either breast. There has been no significant interval change. IMPRESSION: NEGATIVE There is no mammographic evidence of malignancy. A 1 year screening mammogram is recommended. This exam was interpreted at Station ID: [id number]. NOTE: For mammograms, a report in lay terms will be sent to the patient. Approximately 15% of breast malignancies will not be visualized mammographically. In the management of a palpable breast mass, a negative mammogram must not discourage biopsy of a clinically suspicious lesion. Electronically Signed By: Elan willis/holger:02/11/2020 11:18:56 letter sent: Normal Exam ACR BI-RADS Category 1: Negative [id number]
== END ==
PROVIDERS: PCP Family Medicine; Referring Provider Family Medicine; Visit Provider Family Medicine
DX: Z12.31 Encounter for screening mammogram for malignant neoplasm of breast (principal)
CPT/HCPCS: 77063; 77067

== ENCOUNTER → 2020-04-08 11:03 | Outpatient (CLI) | payer OTHER, SELFPAY ==
[2020-04-08 13:29] LABS: Cholesterol 214 mg/dL (140-199); Glucose 91 mg/dL (80-110); HDL Cholesterol 65 mg/dL (40-60); LDL Cholesterol Calculated 124 mg/dL (<100); Triglycerides 126 mg/dL (35-150)
[2020-04-08 13:55] LABS: Thyroid Stimulating Hormone 1.66 uIU/mL (0.47-4.68)
== END ==
PROVIDERS: PCP Family Medicine; Referring Provider Family Medicine; Visit Provider Family Medicine
DX: E03.9 Hypothyroidism, unspecified (principal); Z13.1 Encounter for screening for diabetes mellitus; Z13.220 Encounter for screening for lipoid disorders
CPT/HCPCS: 36415; 80061; 82947; 84443

== ENCOUNTER → 2020-04-21 17:09 | Outpatient (CLI) | payer MEDICARE, OTHER, SELFPAY ==
[2020-04-21] MEDS: COVID-19 VACC #1, MRNA(MOD) 100 MCG/0.5 ML VIAL IM (17:19)
== END ==
PROVIDERS: PCP Family Medicine; Referring Provider Internal Medicine; Visit Provider Internal Medicine
DX: Z23 Encounter for immunization (principal)
CPT/HCPCS: 0011A; 91301

== ENCOUNTER → 2020-05-20 09:57 | Outpatient (CLI) | payer MEDICARE, OTHER, SELFPAY ==
[2020-05-20] MEDS: COVID-19 VACC #2, MRNA(MOD) 100 MCG/0.5 ML VIAL IM (10:08)
== END ==
PROVIDERS: PCP Family Medicine; Visit Provider Internal Medicine
DX: Z23 Encounter for immunization (principal)
CPT/HCPCS: 0012A; 91301

== ENCOUNTER → 2020-08-04 09:32 | Outpatient (CLI) | payer OTHER, SELFPAY ==
[2020-08-04 10:04] LABS: COVID19 -Nasal RAPID Negative (Negative)
== END ==
PROVIDERS: PCP Family Medicine; Visit Provider Physician Assistant
DX: R68.89 Other general symptoms and signs (principal); Z20.822 Contact with and (suspected) exposure to COVID-19
CPT/HCPCS: 87635

== ENCOUNTER 2020-08-25 05:48 | Emergency (ER) | payer OTHER, SELFPAY ==
[2020-08-25] VITALS (7 sets, daily range): BP systolic 124–155; BP diastolic 60–78; PULSE 41–50; RESP 13–23; TEMP 36.3; O2SAT 94–99; BMI 19.0
[2020-08-25] MEDS: ONDANSETRON 4 MG/2 ML INJ (06:27)
[2020-08-25] MEDS: KETOROLAC 30 MG/ML VIAL IV (06:27)
[2020-08-25] MEDS: SODIUM CHLORIDE 0.9% 1,000 ML 1000 ML IV (06:27)
--- NOTE | 2020-08-25 06:31 | PC.NURSE ---
Pt still with vomiting after zofran.
[2020-08-25 06:32] LABS: Add Manual Diff / Slide Review NO; Basophils Absolute Auto 100 /uL (0-100); Basophils Percent Auto 0.7 % (0-2); Eosinophils Absolute Auto 0 /uL (0-450); Eosinophils Percent Auto 0.5 % (2-4); Lymphocytes Absolute Auto 2500 /uL (1100-4500); Lymphocytes Percent Auto 30.3 % (25-40); Mean Corpuscular HGB Conc 33.3 % (30-36); Monocytes Absolute Auto 800 /uL (0-900); Monocytes Percent Auto 10.4 % (3-14); Neutrophils Absolute Auto 4700 /uL (1500-7000); Neutrophils Percent Auto 58.1 % (50-75); Platelet Count 258 X10^3/uL (150-400); Red Cell Distribution Width 14.1 % (11.6-14.8); White Blood Cell Count 8.1 X10^3/uL (4.5-11.0)
[2020-08-25] MEDS: SODIUM CHLORIDE 0.9% IV (06:40)
[2020-08-25] MEDS: LIDOCAINE 2% IV (06:40)
[2020-08-25 06:43] LABS: Prothrombin Time 11.2 SECONDS (10.1-12.7)
[2020-08-25 06:46] LABS: PTT Partial Thromboplastin Tim 28 SECONDS (26.4-36.2)
[2020-08-25 06:47] LABS: Alanine Aminotransferase 38 IU/L (<35); Albumin 4.2 g/dL (3.5-5.0); Albumin Globulin Ratio 1.6 (1.0-2.8); Alkaline Phosphatase 74 U/L (38-126); Aspartate Aminotransferase 42 IU/L (14-36); BUN Creatinine Ratio 27.8 (6-22); Bilirubin Total 0.5 mg/dL (0.2-1.3); Blood Urea Nitrogen 22 mg/dL (7-17); Calcium 9.7 mg/dL (8.4-10.2); Carbon Dioxide 27 mmol/L (22-32); Chloride 105 mmol/L (98-107); Estimated Glomerular Filt Rate > 60.0 mL/min (>60); Globulin 2.6 g/dL (1.7-4.1); Glucose 126 mg/dL (80-110); HEMOLYSIS < 15 (0-50); Lipase 113 U/L (23-300); Sodium 138 mmol/L (137-145); Total Protein 6.8 g/dL (6.3-8.2)
[2020-08-25] MEDS: HYDROMORPHONE 0.5 MG INJ IV (07:00)
--- NOTE | 2020-08-25 07:13 | ED_ITS ---
HPI - General Adult General Chief complaint: Abdominal Pain Stated complaint: woke with severe pain on left side Time Seen by Provider: 08/25/20 06:30 Source: patient Mode of arrival: Wheelchair Limitations: no limitations History of Present Illness HPI narrative: 69-year-old female who is here for evaluation of left-sided flank/back/abdominal discomfort. She states that it started this morning. Did wake her from sleep. Had dry heaving. She also had a small bowel movement but she thought maybe helped her symptoms somewhat. No urinary symptoms. No fevers. She has had a kidney stone in the past and this feels similar to that however her last when she did not have any abdominal pain with it. Related Data Home Medications Medication Instructions Recorded Confirmed cholecalciferol (vitamin D3) 1,000 iu PO QDAY #0 04/29/11 08/04/20 [Vitamin D3] Previous Rx's Medication Instructions Recorded albuterol sulfate 1 puff INHALATION Q4-6H PRN #8 gram 11/18/18 albuterol sulfate See Rx Instructions .ROUTE 06/07/19 .COMPLEX #90 milliliter levothyroxine 50 mcg tablet See Rx Instructions .ROUTE 06/15/20 .COMPLEX #90 tab mometasone-formoterol HFA 100 See Rx Instructions .ROUTE 06/15/20 mcg-5 mcg/actuation aerosol inhaler .COMPLEX #13 g hydrocodone-acetaminophen 1 tab PO Q4H PRN #10 tab 08/25/20 ondansetron 4 mg PO Q6H PRN #14 tab 08/25/20 Allergies Allergy/AdvReac Type Severity Reaction Status Date / Time erythromycin base Allergy Mild RASH Verified 08/04/20 08:58 lanolin Allergy Mild Redness of Verified 08/04/20 08:58 Skin latex Allergy Mild Rash Verified 08/04/20 08:58 shrimp Allergy Mild woke up w/ Verified 08/04/20 08:58 swollen eyes Review of Systems Constitutional Constitutional: Reports system reviewed and no additional complaints, except as documented Cardiovascular Cardiovascular: Reports system reviewed and no additional complaints, except as documented Respiratory Respiratory: Reports system reviewed and no additional complaints, except as documented Gastrointestinal Gastrointestinal: Reports abdominal pain, Reports diarrhea, Reports nausea and Reports vomiting Genitourinary Genitourinary: Denies dysuria and Reports flank pain Genitourinary: Denies dysuria and Reports flank pain Musculoskeletal Musculoskeletal: Reports system reviewed and no additional complaints, except as documented Integumentary/Breasts Skin/Breast: Reports system reviewed and no additional complaints, except as documented Neurologic Neurologic: Reports system reviewed and no additional complaints, except as documented Hematologic/Lymphatic Hematologic/Lymphatic: Reports system reviewed and no additional complaints, except as documented Allergic/Immunologic Allergic/Immunologic: Reports system reviewed and no additional complaints, except as documented Patient History Medical History Adenoma of cecum Anxiety Asthma (2005) Benign tumor of parotid gland (1982) Bradycardia Chicken pox (~1954) Eczema (1952) GERD (gastroesophageal reflux disease) Kidney stone Measles (~1954) Mumps (~1954) 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 Social History marital status: number of children: 2 household members: none lives independently: Yes caregiver/support person: No housing: house education level: college occupational status: employed Smoking Status: Former smoker second hand exposure: No alcohol intake: current substance use type: does not use Smoking Status: Former smoker alcohol intake frequency: 0-2 drinks per day Substance Use Type: does not use Exam Initial Vital Signs Initial Vital Signs: Vital Signs Temperature 97.3 F L 08/25/20 06:08 Pulse Rate 50 L 08/25/20 06:08 Respiratory Rate 16 08/25/20 06:08 Blood Pressure 155/78 H 08/25/20 06:08 Pulse Oximetry 98 08/25/20 06:08 Const General: cooperative and No comfortable (Uncomfortable) Limitations: mental status not altered [facility] Head: normal to inspection and normocephalic Resp Effort & Inspection: normal respiratory effort Auscultation: clear to auscultation bilaterally Cardio Rate: bradycardic Rhythm: regular rhythm GI Inspection: non-distended Palpation: soft, No firm and tender (Left-sided abdominal discomfort) Back/Spine/Pelvis Back: No CVA tenderness Skin Lesions: no lesions Rashes: no rashes Neuro General: patient alert and patient awake Cognition: normal cognition Extrem General: capillary refill normal and No edema Psych Appearance: grossly normal and well kempt Course Orders Ordered: ED Orders 08/25/20 06:13 EKG-12 Lead Stat 08/25/20 06:20 Complete Blood Count AUTO DIFF Stat Comprehensive Metabolic Panel Stat Lipase Stat Partial Thromboplastin Time Stat Prothrombin Time INR Stat 08/25/20 08:21 CT kidney ureter bladder (KUB) Stat Discontinued Medications Hydromorphone HCl (Hydromorphone 0.5 Mg Inj) 0.5 mg IV NOW ONE Stop: 08/25/20 06:59 Last Admin: 08/25/20 07:00 Dose: 0.5 mg Documented by: RAMÓN Sodium Chloride (Normal Saline 0.9%) 1,000 mls @ 1,000 mls/hr IV BOLUS ONE Stop: 08/25/20 07:16 Last Infusion: 08/25/20 07:50 Dose: 0 mls/hr Documented by: Admin: 08/25/20 06:27 Dose: 1,000 mls/hr Documented by: RAMÓN Lidocaine HCl 4.3 ml/ Sodium (Chloride) 54.3 mls @ 325.8 mls/hr IV NOW ONE Stop: 08/25/20 06:31 Last Infusion: 08/25/20 07:00 Dose: 0 mls/hr Documented by: Admin: 08/25/20 06:40 Dose: 325.8 mls/hr Documented by: RAMÓN Ketorolac Tromethamine (Ketorolac 30 Mg/Ml Vial) 30 mg IV NOW ONE Stop: 08/25/20 06:18 Last Admin: 08/25/20 06:27 Dose: 30 mg Documented by: RAMÓN Vital Signs Vital signs: Vital Signs - 8 hr 08/25/20 06:08 08/25/20 06:55 08/25/20 07:00 Temperature 97.3 F L Pulse Rate 50 L 47 L 46 L Respiratory Rate 16 23 Blood Pressure 155/78 H Pulse Oximetry 98 99 99 08/25/20 07:17 08/25/20 07:30 08/25/20 08:00 Temperature Pulse Rate 42 L 43 L 41 L Respiratory Rate 19 13 Blood Pressure 130/60 124/64 131/63 Pulse Oximetry 97 94 98 Medical Decision Making Lab Data Lab results reviewed: Yes I reviewed the patient's lab results. Result diagrams: 08/25/20 06:20 08/25/20 06:20 Labs: Lab Results 08/25/20 08/25/20 08/25/20 Range/Units 06:20 06:20 06:20 WBC 8.1 (4.5-11.0) X10^3/uL RBC 4.20 (4.0-5.2) X10^6/uL Hgb 13.0 (12.0-16.0) g/dL Hct 39.0 (36-46) % MCV 93.0 (80-100) fL MCH 31.0 (26-34) PG MCHC 33.3 (30-36) % RDW 14.1 (11.6-14.8) % Plt Count 258 (150-400) X10^3/uL Neut % (Auto) 58.1 (50-75) % Lymph % (Auto) 30.3 (25-40) % Moore % (Auto) 10.4 (3-14) % Eos % (Auto) 0.5 L (2-4) % Baso % (Auto) 0.7 (0-2) % Neut # (Auto) 4700 (3202-0187) /uL Lymph # (Auto) 2500 (0943-1321) /uL Moore # (Auto) 800 (0-900) /uL Eos # (Auto) 0 (0-450) /uL Baso # (Auto) 100 (0-100) /uL PT 11.2 (10.1-12.7) SECONDS INR 1.0 (0.9-1.3) APTT 28 (26.4-36.2) SECONDS Sodium 138 (137-145) mmol/L Potassium 4.0 (3.4-5.1) mmol/L Chloride 105 (98-107) mmol/L Carbon Dioxide 27 (22-32) mmol/L BUN 22 H (7-17) mg/dL Creatinine 0.79 (0.52-1.04) mg/dL Estimated GFR > 60.0 (>60) mL/min BUN/Creatinine Ratio 27.8 H (6-22) Glucose 126 H (80-110) mg/dL Calcium 9.7 (8.4-10.2) mg/dL Total Bilirubin 0.5 (0.2-1.3) mg/dL AST 42 H (14-36) IU/L ALT 38 H (<35) IU/L Alkaline Phosphatase 74 (38-126) U/L Total Protein 6.8 (6.3-8.2) g/dL Albumin 4.2 (3.5-5.0) g/dL Globulin 2.6 (1.7-4.1) g/dL Albumin/Globulin Ratio 1.6 (1.0-2.8) Lipase 113 (23-300) U/L Urine Dip Bedside Urine Glucose Negative Bedside Urine Bilirubin - Negative Bedside Urine Ketone - Negative Urine Specific [place] 1.020 Bedside Urine Occult Blood - Negative Bedside Urine pH 6.5 Bedside Urine Protein - Negative Bedside Urine Urobilinogen - Negative Bedside Urine Nitrite - Negative Bedside Urine Leukocytes - Negative Esterase Point of care testing: Urine Dip Bedside Urine Glucose Negative Bedside Urine Bilirubin - Negative Bedside Urine Ketone - Negative Urine Specific [place] 1.020 Bedside Urine Occult Blood - Negative Bedside Urine pH 6.5 Bedside Urine Protein - Negative Bedside Urine Urobilinogen - Negative Bedside Urine Nitrite - Negative Bedside Urine Leukocytes - Negative Esterase Imaging Data CT scan - abdomen/pelvis: Radiologist's Impression: [address] [id number] Scan ReportSigned Patient: Jyoti John JMR#: [id number]: 1950cct:[id number]/Sex: 69 / FDate of Service: 08/25/20Loc: EDAccession Number: [id number] Procedure: CT kidney ureter bladder (KUB) Ordering Provider: Vianey Fitzgerald D.O. PROCEDURE: CT KIDNEY URETER BLADDER (KUB) INDICATIONS: left flank pain TECHNIQUE: Noncontrast 5 mm thick sections acquired from the diaphragms to the symphysis. 5 mm thick coronal and sagittal reformats were then performed. For radiation dose reduction, the following was used: automated exposure control, adjustment of mA and/or kV according to patient size. COMPARISON: [facility], CT, ABDOMEN/PELVIS WITH CONTRAST, 01/24/2014, 7:39. FINDINGS: Image quality: Excellent. Lung bases: Lung bases are clear. Heart size is normal. Urinary system: Right kidney: No stone or hydronephrosis Right ureter: Unremarkable Left kidney: 4 mm nonobstructing lower pole stone. Kvzu-[id number] hydronephrosis. Left ureter: Dilated down to the ureterovesical junction where there is a 3 mm stone which is about to pass completely into the bladder. Bladder: No bladder stones. No bladder wall thickening. Other solid organs: Liver is normal in size. Gallbladder is unremarkable . Pancreas is normal in contours. Spleen is normal in size. No adrenal nodules. Peritoneum and bowel: Unenhanced bowel loops demonstrate normal wall thickness and caliber. No free fluid or air. Nodes and vessels: No retroperitoneal or mesenteric adenopathy by size criteria. Aorta and inferior vena cava are normal in caliber. Abdominal wall: No ventral hernias. Pelvis: No free pelvic fluid. No inguinal hernias or adenopathy. Bones: No suspicious bony lesions. No vertebral body compression fractures. IMPRESSION: 1. There is a 3 mm stone which is about to pass completely from the left ureterovesical junction into the bladder. 2. There is [id number] left hydronephrosis and hydroureter. 3. 4 mm nonobstructing left renal stone. Dictated by: Herminio Clement M.D. on 08/25/2020 at 8:49 Approved by: Herminio Clement M.D. on 08/25/2020 at 8:57 ECG Data Attestation: I personally reviewed and interpreted this ECG as follows: Prior ECG tracings: not available for review Interpretation: Sinus bradycardia Ventricular rate is 47 Normal axis Normal QRS Normal QTC No ST T wave changes MDM Narrative Medical decision making narrative: Patient does have a left-sided 3 mm distal UVJ stone which is very consistent with her symptoms and presentation. Urinalysis does not show any signs of infection. Has normal kidney function. No indication for antibiotics. Will send home with nausea medicine and pain medication. We did discuss return precautions and follow-up instructions. Patient expressed understanding and agreement. Discharge Plan Departure Patient Disposition: Home Clinical Impression: Renal colic on left side Instructions: DI for Kidney Stones Activity Restrictions/Additional Instructions: Continue all of your medications as directed. If you can catch the stone that would be ideal. You can take it your primary doctor to have a sent to the lab for further evaluation. Use the nausea and pain medicine as needed. Increase your fluid intake so that you are urinating frequently. Return to the emergency department for any fevers, inability to take her medications due to vomiting, pain that is not controlled or worsening, inability to urinate, or any other new or worsening symptoms Prescriptions: New ondansetron 4 mg tablet,disintegrating 4 mg PO Q6H PRN (Reason: nausea and vomiting) Qty: 14 RF: 0 hydrocodone-acetaminophen 5-325 mg tablet 1 tab PO Q4H PRN (Reason: pain) Qty: 10 RF: 0 No Action cholecalciferol (vitamin D3) [Vitamin D3] 1,000 UNIT tablet 1,000 iu PO QDAY Qty: 0 RF: 0 albuterol sulfate 2.5 mg /3 mL (0.083 %) solution for nebulization See Rx Instructions .ROUTE .COMPLEX Qty: 90 RF: 5 mometasone-formoterol [Dulera] 100-5 mcg/actuation HFA aerosol inhaler See Rx Instructions .ROUTE .COMPLEX Qty: 13 RF: 1 levothyroxine 50 mcg tablet See Rx Instructions .ROUTE .COMPLEX Qty: 90 RF: 1 albuterol sulfate 90 mcg/actuation HFA aerosol inhaler 1 puff INHALATION Q4-6H PRN (Reason: shortness of breath or wheezing) Qty: 8 RF: 0 Referrals: Johana Callaway MD [Primary Care Provider] -
--- NOTE | 2020-08-25 08:21 | DI.CT.S_ITS ---
PROCEDURE: CT KIDNEY URETER BLADDER (KUB) INDICATIONS: left flank pain TECHNIQUE: Noncontrast 5 mm thick sections acquired from the diaphragms to the symphysis. 5 mm thick coronal and sagittal reformats were then performed. For radiation dose reduction, the following was used: automated exposure control, adjustment of mA and/or kV according to patient size. COMPARISON: [facility], CT, ABDOMEN/PELVIS WITH CONTRAST, 01/24/2014, 7:39. FINDINGS: Image quality: Excellent. Lung bases: Lung bases are clear. Heart size is normal. Urinary system: Right kidney: No stone or hydronephrosis Right ureter: Unremarkable Left kidney: 4 mm nonobstructing lower pole stone. [id number] hydronephrosis. Left ureter: Dilated down to the ureterovesical junction where there is a 3 mm stone which is about to pass completely into the bladder. Bladder: No bladder stones. No bladder wall thickening. Other solid organs: Liver is normal in size. Gallbladder is unremarkable . Pancreas is normal in contours. Spleen is normal in size. No adrenal nodules. Peritoneum and bowel: Unenhanced bowel loops demonstrate normal wall thickness and caliber. No free fluid or air. Nodes and vessels: No retroperitoneal or mesenteric adenopathy by size criteria. Aorta and inferior vena cava are normal in caliber. Abdominal wall: No ventral hernias. Pelvis: No free pelvic fluid. No inguinal hernias or adenopathy. Bones: No suspicious bony lesions. No vertebral body compression fractures. IMPRESSION: 1. There is a 3 mm stone which is about to pass completely from the left ureterovesical junction into the bladder. 2. There is cpjp-za-apnskijt left hydronephrosis and hydroureter. 3. 4 mm nonobstructing left renal stone. Dictated by: Herminio Clement M.D. on 08/25/2020 at 8:49 Approved by: Herminio Clement M.D. on 08/25/2020 at 8:57
== END 2020-08-25 09:34 | disposition home or self-care (01) ==
PROVIDERS: Emergency Medicine; Emergency Provider Emergency Medicine; PCP Family Medicine
DX: N23 Unspecified renal colic (principal)
CPT/HCPCS: 36415; 74176; 80053; 81003; 83690; 85025; 85610; 85730; 93005; 96361; 96365; 96375; 99284; J1170; J1885; J2405

== ENCOUNTER → 2020-08-26 12:09 | Outpatient (CLI) | payer OTHER, SELFPAY ==
[2020-09-03 12:10] LABS: Ca oxalate dihydrate 30 % (.); Ca oxalate monohydr 70 % (.)
== END ==
PROVIDERS: PCP Family Medicine; Referring Provider Family Medicine; Visit Provider Family Medicine
DX: N20.0 Calculus of kidney (principal)
CPT/HCPCS: 82365

== ENCOUNTER → 2020-09-23 10:50 | Outpatient (CLI) | payer OTHER, SELFPAY ==
--- NOTE | 2020-09-23 10:56 | DIET.PN ---
Dietary Progress Note Assessment: 69y F attending [address] visit on recc of PCP and surgeon regarding diet to support GERD and her low body weight. Pt had EGD 2y ago showing grade 2 hiatal hernia c stomach elongation, esophagitis and gastritis, started Acid Watchers Diet with good relief. Pt reports hoarseness as most predominant symptom, has raspy voice anyway, this sx has not resolved. Pt has a goal to be able to sing again, its something she enjoys and has not been able to do for a few years. Pt has had two bouts of kidney stones this year and wonders if related to her restrictive diet. Food Sx: citrus and nut milk combine for no symptoms- citrus alone causes irritation has one cup decaf coffee and one beer per day seem to be fine Causing hoarseness: berries, grapes, many fruits stays above 4 pH foods time of day makes a difference for sx and keeping food volume stable Three meals and two snacks on schedule and not eating too much at one time works for her. Usual Day: B: 1 cup decaf coffee and toast c smoothie: blueberries, kale, oat milk, hemp seeds, avocado (usually), banana (sub riced cauliflower and soaked cashews) or on weekends does 2 eggs and greens Sn: nut butter c half piece toast, nuts, black olives c cracker and avocado L: salad c sunflower seeds, pumpkin seeds c olive oil Sn:similar to morning D: protein (chicken, turkey burger, salmon, tofu) salad or greens and sweet potato/baked potato Proteins: salmon, tofu, ground beef, chicken and turkey HT: 5'7 WT: 130# would like to gain 5-10# BMI: 20.4 (low for age) RD Impression: Pt has a limited diet without total resolve of her primary sx of hoarseness. Pts BMI is 20.4 which is low for age, prefer to see BMI of 23 after the age of 67. Pt has latex allergy and reports GERD type symptoms with intake many fruits. Pt eats bananas and avocados daily in her morning smoothie and as snacks. It could be possible she has latex fruit cross reactivity irritating her esophagus and stomach keeping sx from completely going away. Goal would be to eliminate sx with the least restrictive diet possible. Nutrition Diagnosis: underweight r/t restrictive diet options aeb BMI 20.4 (low for age), pt having difficulty maintaining and gaining weight on anti-acid diet, pt must eat small meals secondary to hiatal hernia, pt prefers mostly plant based diet, two episodes of kidney stones since diet initiated, despite current restrictions, pt has sx of persistent hoarseness which keeps her from singing for fun. Interventions: 1. To support healthy weight gain and maintenance, discussed well tolerated foods and adjusted meal contents to better support healthy weight. Pt tolerating most nut and seeds and butters, also olive oil. Discussed continuing to eat these foods as plant based fats are good way to increase body weight. Pt will switch from almond milk (35kcals and 1g PRO/cup) to oat, hemp, or organic soy milk. Pt will continue her diet of three meals and two snacks daily. 2. To address continued hoarseness and reading EGD report from surgeon showing chronic gastritis and esophagitis, discussed latex cross reactivity. Pt will trial two weeks avoiding avocado, banana, and kiwi to see if this improves her hoarseness. Discussed nutrient and caloric dense substitutions for these foods while on this trial. If no change to sx, pt will reincorporate into diet. 3. To address new issues with kidney stones, discussed low citrate and high oxalates as likely culprits as pt eats greens daily and was using spinach daily without rotation and avoids all lemon and nooksack. Discussed cycling greens and cutting back on high oxalate greens such as spinach, chard, and beet greens. Discussed trying to mix a packet of crystallized lemon into smoothie to support increasing citrate levels in urine. Monitoring/Evaluations: f/u in 4w to assess progress and problem solve barriers
== END ==
PROVIDERS: PCP Family Medicine; Referring Provider Family Medicine; Visit Provider Family Medicine
DX: K21.9 Gastro-esophageal reflux disease without esophagitis (principal); Z68.20 Body mass index [BMI] 20.0-20.9, adult; Z71.3 Dietary counseling and surveillance; Z87.442 Personal history of urinary calculi
CPT/HCPCS: 97802

== ENCOUNTER → 2020-10-21 10:58 | Outpatient (CLI) | payer OTHER, SELFPAY ==
--- NOTE | 2020-10-21 11:17 | DIET.PN ---
Dietary Progress Note 70y F [address] RD f/u for dietary reccs to support GERD and low BMI (20.2). Pt reports removing high latex cross reactive foods: banana, kiwi, avocado has decreased her hoarseness. Pt weigh in at 131# (+1# in 1mo) pt has been highly active this month riding her bicycle secondary to good weather. Pt is tolerating crystallized lemon in her water while biking to support citrate (kidney stones) levels without overt aggravation of GERD sx. Pt very happy with dietary advice and feels healthy. Interventions: 1. Discussed reintroducing banana, kiwi, avocado in 1mo to test if hoarseness returns. This will ensure she is not unnecessarily restricting foods if sx remain unchanged. Pt will call for f/u as needed in the future.
== END ==
PROVIDERS: PCP Family Medicine; Referring Provider Family Medicine; Visit Provider Family Medicine
DX: K21.9 Gastro-esophageal reflux disease without esophagitis (principal); Z68.20 Body mass index [BMI] 20.0-20.9, adult; Z71.3 Dietary counseling and surveillance
CPT/HCPCS: 97803

== ENCOUNTER → 2020-12-07 11:37 | Outpatient (CLI) | payer OTHER, SELFPAY ==
--- NOTE | 2020-12-30 09:00 | P.HOLT.S_ITS ---
Automotive Collision Estimator Report Referral & Results Date Patient Seen: 12/07/20 Requesting provider: Johana Callaway Indication: bradycardia Duration of monitoring (days): 14 Diary information: There were 20 patient triggered events and 11 patient diary entries Patient triggered events were associated with (within 45 seconds) sinus rhythm, PACs, PVCs including ventricular bigeminy and trigeminy Patient diary events were associated with (within 45 seconds) rhythm, PACs, PVCs including ventricular bigeminy Data: Minimum heart rate identified was 37 beats per minute at 04:27 on 12/14/2020 Maximum sinus heart rate was 139 beats per minute at 12:24 on 12/18/2020 Maximum overall heart rate was 144 beats per minute at 13:35 on 12/12/2020 during a run of SVT Less than 1% of identified beats were supraventricular ectopic in origin which classifies them as rare Approximately 2.1% of identified beats were ventricular ectopic in origin which classifies them as occasional this included runs of ventricular bigeminy up to 34.6 seconds as well as runs of ventricular trigeminy up to 26.7 seconds There were 2 runs of nonsustained monomorphic ventricular tachycardia the longest lasting 5 beats at a rate of 101 beats per minute which suggest possible andrew conduction rather than true ventricular conduction There were 30 runs of SVT/atrial tachycardia with the longest lasting 16.7 seconds at a rate of 91 beats per minute which more strongly suggest atrial tachycardia Impression: 14 day cardiac exercise physiologist demonstrating above dysrhythmias but does not include any significant or notable bradycardia. Patient's minimum heart rate was 37 beats per minute but generally speaking was in excess of 50 beats per minute for the vast vast majority of the monitoring period. Patient also demonstrated occasional PVCs including very brief runs of ventricular bigeminy and ventricular trigeminy
== END ==
PROVIDERS: PCP Family Medicine; Referring Provider Family Medicine; Visit Provider Family Medicine
DX: R00.1 Bradycardia, unspecified (principal)
CPT/HCPCS: 93246; 93248

== ENCOUNTER → 2021-01-27 16:15 | Outpatient (CLI) | payer OTHER, SELFPAY ==
--- NOTE | 2021-01-27 16:16 | DI.RAD.S_ITS ---
PROCEDURE: XR HIP W PEL IF DONE RT 2V INDICATIONS: RIGHT HIP PAIN TECHNIQUE: AP pelvis with lateral view(s) of the right hip(s). COMPARISON: Reference is made to the CT pelvis dated August 25, 2020. FINDINGS: Bones: No fractures or dislocations. Pelvic ring appears intact. No suspicious bony lesions. Soft tissues: The visualized bowel gas pattern is normal. No suspicious soft tissue calcifications. IMPRESSION: No acute osseous abnormality. Dictated by: Kiel Ho M.D. on 01/27/2021 at 16:51 Approved by: Kiel Ho M.D. on 01/27/2021 at 16:52
== END ==
PROVIDERS: PCP Family Medicine; Referring Provider Family Medicine; Visit Provider Family Medicine
DX: M25.551 Pain in right hip (principal)
CPT/HCPCS: 73502

== ENCOUNTER → 2021-02-03 10:01 | Outpatient (CLI) | payer OTHER, SELFPAY | PROVIDERS: PCP Family Medicine; Referring Provider Family Medicine; Visit Provider Family Medicine | DX: Z78.0 Asymptomatic menopausal state (principal); M85.88 Other specified disorders of bone density and structure, other site; E07.9 Disorder of thyroid, unspecified; Z82.62 Family history of osteoporosis; Z87.891 Personal history of nicotine dependence | CPT/HCPCS: 77080 ==

== ENCOUNTER → 2021-02-24 15:11 | Outpatient (CLI) | payer OTHER, SELFPAY ==
[2021-02-24 16:14] LABS: COVID19 -Nasal RAPID Negative (Negative)
== END ==
PROVIDERS: PCP Family Medicine; Visit Provider Physician Assistant
DX: R09.81 Nasal congestion (principal)
CPT/HCPCS: 87635

== ENCOUNTER → 2021-03-17 08:45 | Outpatient (CLI) | payer OTHER, SELFPAY ==
[2021-03-17 09:08] LABS: COVID19 -Nasal RAPID Negative (Negative)
== END ==
PROVIDERS: PCP Family Medicine; Visit Provider Nurse Practitioner Family
DX: R09.81 Nasal congestion (principal)
CPT/HCPCS: 87635

== ENCOUNTER → 2021-04-14 11:12 | Outpatient (CLI) | payer OTHER, SELFPAY ==
--- NOTE | 2021-04-14 | DI.MG.S_ITS ---
BILATERAL DIGITAL SCREENING MAMMOGRAM 3D/2D WITH CAD: 04/14/2021 CLINICAL: Routine screening. Comparison is made to exams dated: 02/11/2020 mammogram, 02/07/2019 mammogram, and 11/24/2017 mammogram - [facility]. There are scattered fibroglandular elements in both breasts. Current study was also evaluated with a Computer Aided Detection (CAD) system. No significant masses, calcifications, or other findings are seen in either breast. There has been no significant interval change. IMPRESSION: NEGATIVE There is no mammographic evidence of malignancy. A 1 year screening mammogram is recommended. This exam was interpreted at Station ID: [id number]. NOTE: For mammograms, a report in lay terms will be sent to the patient. Approximately 15% of breast malignancies will not be visualized mammographically. In the management of a palpable breast mass, a negative mammogram must not discourage biopsy of a clinically suspicious lesion. Electronically Signed By: Blayne John M.D., jr/holger:04/14/2021 12:02:01 letter sent: Normal Exam ACR BI-RADS Category 1: Negative [id number]
== END ==
PROVIDERS: PCP Family Medicine; Referring Provider Family Medicine; Visit Provider Family Medicine
DX: Z12.31 Encounter for screening mammogram for malignant neoplasm of breast (principal)
CPT/HCPCS: 77063; 77067

== ENCOUNTER → 2021-08-25 09:16 | Outpatient (CLI) | payer OTHER, SELFPAY ==
[2021-08-25 11:03] LABS: Alanine Aminotransferase 19 IU/L (<35); Albumin 4.5 g/dL (3.5-5.0); Albumin Globulin Ratio 1.7 (1.0-2.8); Alkaline Phosphatase 70 U/L (38-126); Aspartate Aminotransferase 30 IU/L (14-36); BUN Creatinine Ratio 19.5 (6-22); Bilirubin Total 0.8 mg/dL (0.2-1.3); Blood Urea Nitrogen 16 mg/dL (7-17); Calcium 9.4 mg/dL (8.4-10.2); Carbon Dioxide 31 mmol/L (22-32); Chloride 104 mmol/L (98-107); Estimated Glomerular Filt Rate > 60 mL/min (>60); Globulin 2.7 g/dL (1.7-4.1); Glucose 76 mg/dL (80-110); HEMOLYSIS < 15 (0-50); Sodium 139 mmol/L (137-145); Total Protein 7.2 g/dL (6.3-8.2)
[2021-08-25 11:49] LABS: Thyroid Stimulating Hormone 1.15 uIU/mL (0.47-4.68)
== END ==
PROVIDERS: PCP Family Medicine; Referring Provider Family Medicine; Visit Provider Family Medicine
DX: R74.8 Abnormal levels of other serum enzymes (principal); E03.9 Hypothyroidism, unspecified
CPT/HCPCS: 36415; 80053; 84443

== ENCOUNTER → 2022-01-10 13:50 | Outpatient (CLI) | payer OTHER, SELFPAY ==
--- NOTE | 2022-01-10 13:52 | DI.RAD.S_ITS ---
PROCEDURE: XR SHOULDER LT MIN 2V INDICATIONS: Left upper chest injury TECHNIQUE: Three views of the shoulder were acquired. COMPARISON: None. FINDINGS: Bones: There is a comminuted, mildly displaced fracture of the distal clavicle. Widening of the AC joint is present. No elevation of the distal clavicle. The glenohumeral joint is intact. Soft tissues: No suspicious soft tissue calcifications. No visible pneumothorax in the underlying left lung. IMPRESSION: 1. Distal clavicle fracture and AC joint widening. 2. No coracoclavicular separation. Dictated by: Vidya Weir M.D. on 01/10/2022 at 14:30 Approved by: Vidya Weir M.D. on 01/10/2022 at 14:31
--- NOTE | 2022-01-10 13:52 | DI.RAD.S_ITS ---
PROCEDURE: XR RIBS LT MIN 3V W CXR1V INDICATIONS: Left upper chest injury TECHNIQUE: 2 views of the left ribs were acquired, along with a single view chest. COMPARISON: [facility], CR, XR SHOULDER LT MIN 2V, 01/10/2022, 14:01. FINDINGS: Surgical changes and devices: None. Bones and chest wall: No displaced right fractures. There is a nondisplaced distal clavicular fracture. No suspicious bony lesions. Overlying soft tissues appear unremarkable. Lungs and pleura: No pleural effusions or pneumothorax. Lungs appear clear. Mediastinum: Mediastinal contours appear normal. Heart size is normal. IMPRESSION: 1. No displaced rib fractures. 2. Nondisplaced distal clavicular fracture. Dictated by: Julissa Mclaughlin M.D. on 01/10/2022 at 17:23 Approved by: Julissa Mclaughlin M.D. on 01/10/2022 at 17:27
== END ==
PROVIDERS: PCP Family Medicine; Referring Provider Nurse Practitioner Family; Visit Provider Nurse Practitioner Family
DX: S42.032A Displaced fracture of lateral end of left clavicle, initial encounter for closed fracture (principal); S49.92XA Unspecified injury of left shoulder and upper arm, initial encounter; X58.XXXA Exposure to other specified factors, initial encounter
CPT/HCPCS: 71101; 73030

== ENCOUNTER → 2022-03-01 10:28 | Outpatient (CLI) | payer OTHER, SELFPAY ==
[2022-03-01 12:08] LABS: Add Manual Diff / Slide Review NO; Basophils Absolute Auto 0 /uL (0-100); Basophils Percent Auto 0.8 % (0-2); Eosinophils Absolute Auto 0 /uL (0-450); Eosinophils Percent Auto 0.9 % (2-4); Hemoglobin 13.1 g/dL (12.0-16.0); Lymphocytes Absolute Auto 1300 /uL (1100-4500); Lymphocytes Percent Auto 33.8 % (25-40); Mean Corpuscular HGB Conc 32.7 % (30-36); Mean Corpuscular Hemoglobin 29.6 PG (26-34); Mean Corpuscular Volume 90.5 fL (80-100); Monocytes Absolute Auto 500 /uL (0-900); Monocytes Percent Auto 12.6 % (3-14); Neutrophils Absolute Auto 2100 /uL (1500-7000); Neutrophils Percent Auto 51.9 % (50-75); Platelet Count 242 X10^3/uL (150-400); Red Blood Cell Count 4.43 X10^6/uL (4.0-5.2); Red Cell Distribution Width 14.1 % (11.6-14.8)
[2022-03-01 17:12] LABS: Alanine Aminotransferase 21 IU/L (<35); Albumin 4.4 g/dL (3.5-5.0); Albumin Globulin Ratio 1.5 (1.0-2.8); Alkaline Phosphatase 80 U/L (38-126); Aspartate Aminotransferase 33 IU/L (14-36); BUN Creatinine Ratio 19.4 (6-22); Bilirubin Total 0.8 mg/dL (0.2-1.3); Blood Urea Nitrogen 14 mg/dL (7-17); Calcium 9.6 mg/dL (8.4-10.2); Carbon Dioxide 28 mmol/L (22-32); Chloride 102 mmol/L (98-107); Estimated Glomerular Filt Rate > 60 mL/min (>60); Globulin 2.9 g/dL (1.7-4.1); Glucose 75 mg/dL (80-110); HEMOLYSIS < 15 (0-50); Potassium 3.8 mmol/L (3.4-5.1); Sodium 139 mmol/L (137-145); Total Protein 7.3 g/dL (6.3-8.2)
[2022-03-01 18:01] LABS: TSH w/ Reflex to FT4 1.09 uIU/mL (0.47-4.68)
[2022-03-01 18:06] LABS: Vitamin B12 266 pg/mL (239-931)
== END ==
PROVIDERS: PCP Family Medicine; Referring Provider Physician Assistant; Visit Provider Physician Assistant
DX: R41.89 Other symptoms and signs involving cognitive functions and awareness (principal); E03.9 Hypothyroidism, unspecified
CPT/HCPCS: 36415; 80053; 82607; 84443; 85025

== ENCOUNTER → 2022-03-23 15:56 | Outpatient (CLI) | payer OTHER, SELFPAY ==
--- NOTE | 2022-03-23 15:58 | DI.MRI.S_ITS ---
PROCEDURE: MR HEAD/BRAIN WO CON INDICATIONS: Cognitive impairment - hx of head injury in December 2021 TECHNIQUE: Non-contrast axial T1 spin echo, axial T2 fast spin echo, sagittal and axial FLAIR, coronal T2 fast spin echo, axial gradient echo, axial diffusion and ADC through the brain. COMPARISON: None. FINDINGS: Image quality: Excellent. CSF spaces: Ventricles appear symmetric in size and shape. Basal cisterns are patent. No extra-axial fluid collections. Brain: No intracranial bleeds or mass effects. There is cerebral volume loss for age. There are periventricular and deep white matter chronic small vessel ischemic changes. Brainstem appears normal. Diffusion-weighted images show no acute ischemic insults. No chronic ischemic insults. Normal intravascular flow voids are present. Skull and face: Calvarial bone marrow is normal in signal. Orbits are normal. Sinuses: Sinuses and mastoids are clear. IMPRESSION: No findings of intracranial hemorrhage can be seen. Unremarkable intracranial study for age, with note made of mild brain parenchymal volume loss and chronic small vessel ischemic change. No findings of acute or subacute infarction can be seen. Dictated by: George Euceda M.D. on 03/23/2022 at 16:39 Approved by: George Euceda M.D. on 03/23/2022 at 16:40
== END ==
PROVIDERS: PCP Family Medicine; Referring Provider Physician Assistant; Visit Provider Physician Assistant
DX: R41.89 Other symptoms and signs involving cognitive functions and awareness (principal)
CPT/HCPCS: 70551

== ENCOUNTER → 2022-04-18 07:34 | Outpatient (CLI) | payer OTHER, SELFPAY ==
--- NOTE | 2022-04-18 | DI.MG.S_ITS ---
BILATERAL DIGITAL SCREENING MAMMOGRAM 3D/2D WITH CAD: 04/18/2022 CLINICAL: Routine screening. Comparison is made to exams dated: 04/14/2021 mammogram, 02/11/2020 mammogram, and 02/07/2019 mammogram - [facility]. There are scattered areas of fibroglandular density in both breasts (category b / 25%-50% glandular tissue). Current study was also evaluated with a Computer Aided Detection (CAD) system. No significant masses, calcifications, or other findings are seen in either breast. There has been no significant interval change. IMPRESSION: NEGATIVE There is no mammographic evidence of malignancy. A 1 year screening mammogram is recommended. Based on the Tyrer Cuzick model (a risk assessment model) the patient's lifetime risk is 8.1% and her 10 year risk is 5.2%. According to the ACR, ACS, and NCCN guidelines, an annual breast MRI exam along with mammogram is recommended if the patient's lifetime risk is 20% or greater. This exam was interpreted at Station ID: [id number]. NOTE: For mammograms, a report in lay terms will be sent to the patient. Approximately 15% of breast malignancies will not be visualized mammographically. In the management of a palpable breast mass, a negative mammogram must not discourage biopsy of a clinically suspicious lesion. Electronically Signed By: Suresh ulloa/holger:04/18/2022 08:49:46 letter sent: Normal Exam ACR BI-RADS Category 1: Negative [id number]
== END ==
PROVIDERS: PCP Family Medicine; Referring Provider Family Medicine; Visit Provider Family Medicine
DX: Z12.31 Encounter for screening mammogram for malignant neoplasm of breast (principal)
CPT/HCPCS: 77063; 77067

== ENCOUNTER → 2022-11-03 07:34 | Outpatient (CLI) | payer OTHER, SELFPAY ==
[2022-11-03 09:18] LABS: Cholesterol 188 mg/dL (140-199); HDL Cholesterol 52 mg/dL (40-60); LDL Cholesterol Calculated 120 mg/dL (<100); Triglycerides 78 mg/dL (35-150)
[2022-11-03 09:34] LABS: TSH w/ Reflex to FT4 1.29 uIU/mL (0.47-4.68)
[2022-11-03 09:57] LABS: Vitamin B12 505 pg/mL (239-931)
[2022-11-04 06:07] LABS: x Labcorp Estim. Avg Glu (eAG) 134 mg/dL (.); x Labcorp Hemoglobin A1c 6.3 % (4.8-5.6)
== END ==
PROVIDERS: PCP Family Medicine; Referring Provider Family Medicine; Visit Provider Family Medicine
DX: G62.9 Polyneuropathy, unspecified; Z13.220 Encounter for screening for lipoid disorders
CPT/HCPCS: 36415; 80061; 82607; 83036; 84443

== ENCOUNTER → 2023-04-03 08:49 | Outpatient (CLI) | payer OTHER, SELFPAY ==
[2023-04-03 10:38] LABS: Hemoglobin A1C% w Est Avg Glu 5.8 % (4.0-6.0)
== END ==
PROVIDERS: Family Provider Family Medicine; PCP Family Medicine; Referring Provider Family Medicine; Visit Provider Family Medicine
DX: R73.03 Prediabetes (principal)
CPT/HCPCS: 36415; 83036

== ENCOUNTER → 2023-06-08 08:56 | Outpatient (CLI) | payer OTHER, SELFPAY ==
--- NOTE | 2023-06-08 08:57 | DI.MG.S_ITS ---
BILATERAL DIGITAL SCREENING MAMMOGRAM 3D/2D WITH CAD: 06/08/2023 CLINICAL: Routine screening. Comparison is made to exams dated: 04/18/2022 mammogram, 04/14/2021 mammogram, and 02/11/2020 mammogram - [facility]. There are scattered areas of fibroglandular density in both breasts (category b / 25%-50% glandular tissue). Current study was also evaluated with a Computer Aided Detection (CAD) system. There are calcifications in the right breast middle depth outer region seen on the craniocaudal view only. No other significant masses, calcifications, or other findings are seen in either breast. IMPRESSION: INCOMPLETE: NEEDS ADDITIONAL IMAGING EVALUATION The calcification in the right breast is indeterminate. A diagnostic mammogram is recommended. Based on the Tyrer Cuzick model (a risk assessment model) the patient's lifetime risk is 7.8% and her 10 year risk is 5.3%. According to the ACR, ACS, and NCCN guidelines, an annual breast MRI exam along with mammogram is recommended if the patient's lifetime risk is 20% or greater. This exam was interpreted at Station ID: [id number]. NOTE: For mammograms, a report in lay terms will be sent to the patient. Approximately 15% of breast malignancies will not be visualized mammographically. In the management of a palpable breast mass, a negative mammogram must not discourage biopsy of a clinically suspicious lesion. Electronically Signed By: Riana Osuna M.D., PH.D eb/:06/08/2023 13:53:04 letter sent: Additional Imaging Needed ACR BI-RADS Category 0: Incomplete [id number]
== END ==
LOC: MAMMO 08:57
PROVIDERS: Family Provider Family Medicine; PCP Family Medicine; Referring Provider Family Medicine; Visit Provider Family Medicine
DX: Z12.31 Encounter for screening mammogram for malignant neoplasm of breast (principal); R92.323 Mammographic fibroglandular density, bilateral breasts
CPT/HCPCS: 77063; 77067

== ENCOUNTER → 2023-07-04 09:25 | Outpatient (CLI) | payer OTHER, SELFPAY ==
--- NOTE | 2023-07-04 09:26 | DI.MG.S_ITS ---
UNILATERAL RIGHT DIGITAL DIAGNOSTIC MAMMOGRAM 3D/2D WITH ADDITIONAL VIEWS: 07/04/2023 CLINICAL: Additional evaluation requested from prior study. Comparison is made to exams dated: 06/08/2023 mammogram, 04/18/2022 mammogram, and 04/14/2021 mammogram - [facility]. There are scattered areas of fibroglandular density in the right breast (category b / 25%-50% glandular tissue). There are grouped dystrophic rim/ peripheral calcifications in the right breast at 9 o'clock posterior depth. No other significant masses or calcifications are seen in the breast. IMPRESSION: PROBABLY BENIGN The grouped calcifications in the right breast are probably benign. A follow-up right mammogram in 6 months is recommended to demonstrate stability. Findings and recommendations were conveyed to the patient at time of exam. Based on the Tyrer Cuzick model (a risk assessment model) the patient's lifetime risk is 7.8% and her 10 year risk is 5.3%. According to the ACR, ACS, and NCCN guidelines, an annual breast MRI exam along with mammogram is recommended if the patient's lifetime risk is 20% or greater. This exam was interpreted at Station ID: [id number]. NOTE: For mammograms, a report in lay terms will be sent to the patient. Approximately 15% of breast malignancies will not be visualized mammographically. In the management of a palpable breast mass, a negative mammogram must not discourage biopsy of a clinically suspicious lesion. Electronically Signed By: Vidya vaz/:07/04/2023 10:58:47 letter sent: Followup Recommended ACR BI-RADS Category 3: Probably benign [id number]
== END ==
PROVIDERS: Family Provider Family Medicine; PCP Family Medicine; Referring Provider Family Medicine; Visit Provider Family Medicine
DX: R92.8 Other abnormal and inconclusive findings on diagnostic imaging of breast (principal); R92.1 Mammographic calcification found on diagnostic imaging of breast
CPT/HCPCS: 77065; G0279

== ENCOUNTER → 2023-10-25 15:11 | Outpatient (CLI) | payer OTHER, SELFPAY ==
[2023-10-25 15:41] LABS: Hemoglobin A1C% w Est Avg Glu 5.7 % (4.0-6.0)
[2023-10-25 16:02] LABS: Alanine Aminotransferase 24 IU/L (<35); Albumin 4.5 g/dL (3.5-5.0); Alkaline Phosphatase 76 U/L (38-126); Aspartate Aminotransferase 32 IU/L (14-36); BUN Creatinine Ratio 19.3 (6-22); Bilirubin Total 0.7 mg/dL (0.2-1.3); Blood Urea Nitrogen 16 mg/dL (7-17); C-Reactive Protein Quant < 0.5 mg/dL (<1.0); Calcium 9.4 mg/dL (8.4-10.2); Carbon Dioxide 25 mmol/L (22-32); Chloride 106 mmol/L (98-107); Estimated Glomerular Filt Rate > 60 mL/min (>60); Globulin 2.2 g/dL (1.7-4.1); Glucose 113 mg/dL (80-110); HEMOLYSIS < 15 (0-50); Potassium 3.7 mmol/L (3.4-5.1); Sodium 138 mmol/L (137-145); Total Protein 6.7 g/dL (6.3-8.2)
[2023-10-25 16:28] LABS: Thyroid Stimulating Hormone 0.959 uIU/mL (0.47-4.68)
[2023-10-25 16:32] LABS: Erythrocyte Sedimentation Rate 4 MM/HR (0-20)
== END ==
PROVIDERS: Family Provider Family Medicine; PCP Family Medicine; Referring Provider Family Medicine; Visit Provider Family Medicine
DX: R73.03 Prediabetes (principal); R19.7 Diarrhea, unspecified; E03.9 Hypothyroidism, unspecified
CPT/HCPCS: 80053; 83036; 84443; 85651; 86140

== ENCOUNTER → 2024-02-26 11:59 | Outpatient (CLI) | payer OTHER, SELFPAY ==
[2024-02-26 13:02] LABS: Lithium < 0.2 mmol/L (0.6-1.2)
[2024-02-26 13:05] LABS: BUN Creatinine Ratio 22.8 (6-22); Blood Urea Nitrogen 18 mg/dL (7-17); Calcium 9.8 mg/dL (8.4-10.2); Carbon Dioxide 30 mmol/L (22-32); Chloride 100 mmol/L (98-107); Estimated Glomerular Filt Rate > 60 mL/min (>60); Glucose 100 mg/dL (80-110); HEMOLYSIS < 15 (0-50); Potassium 4.4 mmol/L (3.4-5.1); Sodium 135 mmol/L (137-145)
== END ==
PROVIDERS: Family Provider Family Medicine; PCP Family Medicine; Referring Provider Student in an Organized Health Care Education/Training Program; Visit Provider Student in an Organized Health Care Education/Training Program
DX: Z51.81 Encounter for therapeutic drug level monitoring (principal)
CPT/HCPCS: 36415; 80048; 80178; 84443

== ENCOUNTER → 2024-03-12 08:54 | Outpatient (CLI) | payer OTHER, SELFPAY ==
--- NOTE | 2024-03-12 08:55 | DI.MG.S_ITS ---
UNILATERAL RIGHT DIGITAL DIAGNOSTIC MAMMOGRAM 3D/2D SHORT-TERM FOLLOW-UP: 03/12/2024 CLINICAL: Patient returns for a 6 month follow up of the right breast. Comparison is made to exams dated: 07/04/2023 mammogram, 06/08/2023 mammogram, and 04/18/2022 mammogram - [facility]. There are scattered areas of fibroglandular density (category b / 25%-50% glandular tissue). There are grouped dystrophic heterogeneous calcifications in the right breast at 9 o'clock posterior depth. These are not significantly changed. No other significant masses or calcifications are seen in the breast. IMPRESSION: PROBABLY BENIGN The grouped dystrophic heterogeneous calcifications in the right breast are probably benign. A follow-up mammogram in 6 months is recommended to demonstrate stability. Based on the Tyrer Cuzick model (a risk assessment model) the patient's lifetime risk is 7.5% and her 10 year risk is 5.4%. According to the ACR, ACS, and NCCN guidelines, an annual breast MRI exam along with mammogram is recommended if the patient's lifetime risk is 20% or greater. This exam was interpreted at Station ID: [id number]. NOTE: For mammograms, a report in lay terms will be sent to the patient. Approximately 15% of breast malignancies will not be visualized mammographically. In the management of a palpable breast mass, a negative mammogram must not discourage biopsy of a clinically suspicious lesion. Electronically Signed By: Caesar Palmer M.D. ar/:03/13/2024 08:55:14 letter sent: Followup Recommended ACR BI-RADS Category 3: Probably Benign
== END ==
PROVIDERS: Family Provider Family Medicine; PCP Family Medicine; Referring Provider Family Medicine; Visit Provider Family Medicine
DX: R92.8 Other abnormal and inconclusive findings on diagnostic imaging of breast (principal); R92.1 Mammographic calcification found on diagnostic imaging of breast
CPT/HCPCS: 77065; G0279

== ENCOUNTER → 2024-08-09 09:33 | Outpatient (CLI) | payer MEDICARE, SELFPAY ==
[2024-08-09 10:24] LABS: Lithium < 0.2 mmol/L (0.6-1.2)
[2024-08-09 10:31] LABS: BUN Creatinine Ratio 26.9 (6-22); Blood Urea Nitrogen 21 mg/dL (7-17); Calcium 9.6 mg/dL (8.4-10.2); Carbon Dioxide 30 mmol/L (22-32); Chloride 103 mmol/L (98-107); Estimated Glomerular Filt Rate > 60 mL/min (>60); Glucose 79 mg/dL (70-99); HEMOLYSIS < 15 (0-50); Potassium 4.3 mmol/L (3.4-5.1); Sodium 139 mmol/L (137-145)
[2024-08-09 10:56] LABS: TSH w/ Reflex to FT4 1.14 uIU/mL (0.47-4.68)
== END ==
PROVIDERS: Family Provider Family Medicine; PCP Family Medicine; Referring Provider Student in an Organized Health Care Education/Training Program; Visit Provider Student in an Organized Health Care Education/Training Program
DX: Z51.81 Encounter for therapeutic drug level monitoring (principal)
CPT/HCPCS: 36415; 80048; 80178; 84443; 99214

== ENCOUNTER 2024-08-28 12:16 | Day surgery (SDC) | payer OTHER, SELFPAY ==
[2024-08-28] MEDS: LACTATED RINGERS 1,000 ML 84 ML IV (12:38)
--- NOTE | 2024-08-28 12:42 | PM.HP.IH.1 ---
History of Present Illness History of Present Illness Date Patient Seen: 08/28/24 Chief complaint: SDC Narrative: History of Barretts esophagus with need for follow-up at a 3 year interval. Also history of colon polyps on a 7 year follow-up. No symptoms other than reflux [facility] Medical History (Updated 06/24/24 @ 08:45 by Johana Callaway MD) Unspecified dementia, moderate, without behavioral disturbance, psychotic disturbance, mood disturbance, and anxiety Mild neurocognitive disorder Prediabetes Parotid tumor (03/16/11) Paroxysmal SVT (supraventricular tachycardia) Bradycardia Kidney stone Adenoma of cecum Duodenitis Anxiety GERD (gastroesophageal reflux disease) Anemia Chicken pox (~1954) Measles (~1954) Mumps (~1954) Eczema (1952) Asthma (2005) Benign tumor of parotid gland (1982) Surgical History History of surgery (1982) Anesthesia Status post breast biopsy (~1995) Status post breast biopsy (~1992) Family History Brother Age: 72 Diabetes mellitus Brother Age: 70 Diabetes mellitus Grandfather Mental health problem Grandmother Heart disease Mother Age: 92 Malignant neoplasm of lung, unspecified laterality, unspecified part of lung Hypertension Brother Heart attack Liver disease Father Parkinson's disease Grandfather Pancreatic cancer Grandmother No problems noted. Social History marital status: number of children: 2 household members: none lives independently: Yes caregiver/support person: No housing: house education level: college occupational status: employed second hand exposure: No alcohol intake: current substance use type: does not use Meds Home Medications and Allergies Home Medications ?Medication ?Instructions ?Recorded ?Confirmed ?Type cholecalciferol (vitamin D3) 25 1,000 iu PO QDAY ##0 04/29/11 06/24/24 History mcg (1,000 unit) tablet (Vitamin D3) triamcinolone acetonide 0.1 % 1 applic topical BID #15 grams 06/08/21 06/24/24 Rx topical ointment mometasone-formoterol HFA 100 1 puff inhalation BEDTIME #13 grams 12/01/21 06/24/24 Rx mcg-5 mcg/actuation aerosol inhaler (Dulera) memantine 10 mg tablet 10 mg PO BID #180 tabs 11/06/23 08/09/24 Rx levothyroxine 50 mcg tablet 50 mcg PO DAILY #90 tabs 02/02/24 06/24/24 Rx sertraline 50 mg tablet 50 mg PO DAILY #30 tabs 04/26/24 08/09/24 Rx albuterol sulfate 90 mcg/actuation 2 puff inhalation Q4-6H PRN 06/04/24 06/24/24 Rx aerosol inhaler shortness of breath or wheezing 90 days #6.7 grams pantoprazole 20 mg tablet,delayed 20 mg PO DAILY #30 tabs 06/10/24 06/24/24 Rx release sodium,potassium,mag sulfates 17.5 See Rx Instructions PO .COMPLEX 07/03/24 Rx gram-3.13 gram-1.6 gram oral soln #354 mL (Suprep Bowel Prep Kit) donepezil 5 mg tablet 5 mg PO BID 08/09/24 08/09/24 History Allergies Allergy/AdvReac Type Severity Reaction Status Date / Time erythromycin base Allergy Mild RASH Verified 06/24/24 08:15 lanolin Allergy Mild Redness of Verified 06/24/24 08:15 Skin latex Allergy Mild Rash Verified 06/24/24 08:15 shrimp Allergy Mild woke up w/ Verified 06/24/24 08:15 swollen eyes Assessment & Plan Assessment & Plan narrative: Need for EGD and colonoscopy for problems listed above. Risks, benefits, alternatives have been explained. Time-Based Coding :: [TOTAL MINUTES] spent with patient and on the chart (including review of chart, obtaining history, exam, reviewing outside data, placing orders, documenting exam and treatment plan, and counseling patient) on [DATE]. [employer] Document charge(s): No
[2024-08-28 12:43] VITALS: BP 147/84; PULSE 65; RESP 16; TEMP 36.3; O2SAT 97
--- NOTE | 2024-08-28 12:44 | P.OP.EGD&C_ITS ---
Operative Date/Time/Diagnoses Date of procedure: 08/28/24 Time of procedure: 13:24 Pre-op diagnosis: See indication and findings Post-op diagnosis: same Procedure & Clinicians Study performed: EGD and colonoscopy Same procedure as scheduled: Yes Surgeon: Ham Moore Procedure Notes Procedure in detail: After informed consent was obtained the patient was placed in left lateral decubitus position. The video upper scope was placed into the oropharynx and with the patient's help swallowed into the esophagus. The esophagus stomach and duodenal were carefully examined. On withdrawal, retroflexed view the GE junction was performed. The scope was removed. The patient tolerated the pro cedure well. The patient was then turned to the colonoscope substituted. This was placed the rectum slowly advanced cecum. Preparation was good. On slow withdrawal mucosa was carefully examined. The scope was removed. The patient tolerated the procedure well. Blood loss none Complications none Sedation mac Findings EGD One. Absolutely a flat squamocolumnar junction with no pits of it extending above the top levels of the GE folds. In other words, no Barretts was present photos were taken including retroflexed view 2. No evidence for esophagitis 3. Normal stomach 4. Normal duodenal bulb and sweep Colonoscopy Normal colonoscopy to cecum First I had suggest no further surveillance for Barretts esophagus as none is present at this time. 2. She should treat herself with medications such as H2 blockers/Pepcid to see if this can control her GE reflux I would 1st ever try [id number] 20 mg once daily 3. Follow-up for colon polyps would be at 7 years.
[2024-08-28 13:26] VITALS: BP 108/64; PULSE 43; RESP 16; TEMP 36.2; O2SAT 100
[2024-08-28 13:30] VITALS: BP 114/63; PULSE 40; RESP 12; O2SAT 99
[2024-08-28 13:45] VITALS: BP 112/78; PULSE 64; RESP 12; TEMP 36.3; O2SAT 99
== END 2024-08-28 14:40 | disposition home or self-care (01) ==
PROVIDERS: Family Provider Family Medicine; PCP Family Medicine; Referring Provider Internal Medicine Gastroenterology; Visit Provider Internal Medicine Gastroenterology
PROC: 0DJ08ZZ Inspection of Upper Intestinal Tract, Via Natural or Artificial Opening Endoscopic (ICD-10-PCS; CPT 43235; principal; 2024-08-28 13:15)
PROC: 0DJD8ZZ Inspection of Lower Intestinal Tract, Via Natural or Artificial Opening Endoscopic (ICD-10-PCS; CPT 45378; 2024-08-28 13:15)
DX: Z12.11 Encounter for screening for malignant neoplasm of colon (principal); Z86.0100 Personal history of colon polyps, unspecified; K21.9 Gastro-esophageal reflux disease without esophagitis; J45.909 Unspecified asthma, uncomplicated; F03.B0 Unspecified dementia, moderate, without behavioral disturbance, psychotic disturbance, mood disturbance, and anxiety
CPT/HCPCS: 43235; G0105; 45378; J2704

== ENCOUNTER → 2024-09-25 10:16 | Outpatient (CLI) | payer OTHER, SELFPAY ==
--- NOTE | 2024-09-25 10:18 | DI.MG.S_ITS ---
MM diagnostic mammo BI: 09/25/2024. BI-RADS: 3 CLINICAL: 73-year old female for bilateral diagnostic mammogram that is a follow-up to diagnostic, right, digital, tomosynthesis, short-term follow-up on 03[facility]12/2024[facility] No personal or first-degree family history of breast cancer. The patient had a prior right breast biopsy. PRIOR EXAMS 03/12/2024, 07/04/2023, 06/08/2023, 04/18/2022, MAMMOGRAPHY TECHNIQUE: 2D and 3D (tomosynthesis) digital mammographic views obtained, with additional images as needed for full coverage. Current study was also evaluated with a Computer Aided Detection (CAD) system. DENSITY B. There are scattered areas of fibroglandular density. MAMMOGRAPHY FINDINGS Right: Outer at 9:00, Posterior depth: There are probably-benign grouped coarse calcifications. Left: No suspicious mass, asymmetry, microcalcification, or other abnormality seen. IMPRESSION: Right (Calcification): Outer at 9:00, Posterior depth * Probably Benign. Left * No evidence of malignancy. RECOMMENDATIONS Right: Outer at 9:00, Posterior depth * Followup with diagnostic mammography in one year. COMMENTS: The patient will also be due for contralateral screening mammogram at time of follow up examination. Findings and recommendations were conveyed to the patient during today's evaluation. OVERALL ASSESSMENT CATEGORY BI-RADS-3: Probably Benign. ELECTRONICALLY SIGNED: Rivera Lawson M.D. on 09/25/2024 at 11:00:51 AM PT Interpreting Station ID: [id number]
== END ==
LOC: MAMMO 10:17
PROVIDERS: Family Provider Family Medicine; PCP Family Medicine; Referring Provider Family Medicine; Visit Provider Family Medicine
DX: R92.8 Other abnormal and inconclusive findings on diagnostic imaging of breast (principal); R92.1 Mammographic calcification found on diagnostic imaging of breast
CPT/HCPCS: 77066; G0279

== ENCOUNTER → 2025-01-28 08:42 | Outpatient (CLI) | payer OTHER, SELFPAY ==
[2025-01-28 10:33] LABS: Blood Urea Nitrogen 13 mg/dL (7-17); Calcium 9.6 mg/dL (8.4-10.2); Carbon Dioxide 30 mmol/L (22-32); Chloride 102 mmol/L (98-107); Estimated Glomerular Filt Rate > 60 mL/min (>60); Glucose 124 mg/dL (70-99); HEMOLYSIS < 15 (0-50); Potassium 4.0 mmol/L (3.4-5.1); Sodium 140 mmol/L (137-145)
[2025-01-28 10:44] LABS: Lithium < 0.2 mmol/L (0.6-1.2)
[2025-01-28 10:54] LABS: TSH w/ Reflex to FT4 1.36 uIU/mL (0.47-4.68)
== END ==
PROVIDERS: PCP Family Medicine; Referring Provider Student in an Organized Health Care Education/Training Program; Visit Provider Student in an Organized Health Care Education/Training Program
DX: Z51.81 Encounter for therapeutic drug level monitoring (principal)
CPT/HCPCS: 36415; 80048; 80178; 84443; 99214